=== PATIENT | female | born 1985 | race Caucasian/White ===

== ENCOUNTER 2022-06-01 05:57 | Day surgery (SDC) | payer OTHER, SELFPAY ==
[2022-03-27 13:55] VITALS: BMI 29.9
[2022-05-12 13:01] VITALS: BMI 31.4
[2022-06-01 06:22] VITALS: BP 122/84; PULSE 88; RESP 20; TEMP 37.2; O2SAT 98
--- NOTE | 2022-06-01 07:12 | WPDANESEPPF ---
Anes - Initial Pre Proc Eval Procedure: Operation Date: 06/01/22 07:30 Proposed Procedures p Esophagogastroduodenoscopy - Andrew Howe MD Date/Time: 06/01/22 07:12 Surgeon: Andrew Howe MD Pre Op Diagnosis: Dysphagia Patient Data Age: 37 Gender: F Height: 1.7 m Weight: 92.4 kg Allergies Allergy/AdvReac Type Severity Reaction Status Date / Time metoclopramide Allergy Severe Unknown Verified 06/01/22 06:33 Home Medications Medication Instructions Recorded Confirmed Type albuterol sulfate 90 mcg/actuation 1 inh inhalation Q4H 03/12/22 06/01/22 History aerosol inhaler bupropion HCl 300 mg 24 hr tablet, 300 mg PO QAM 03/12/22 06/01/22 History extended release cholecalciferol (vitamin D3) 25 25 mcg PO DAILY 03/12/22 06/01/22 History mcg (1,000 unit) capsule magnesium malate, chelate 120 mg PO DAILY 03/12/22 06/01/22 History multivitamin 1 tablet PO DAILY 03/12/22 06/01/22 History sertraline 25 mg tablet 25 mg PO DAILY 03/12/22 06/01/22 History medroxyprogesterone 150 mg/mL 150 mg IM [id number] 05/12/22 06/01/22 History intramuscular syringe (Depo-Provera) Patient hx anesthesia problems: none Family hx anesthesia problems: none Results Review: All pre-operative results and documents have been reviewed as part of the pre-operative evaluation. COUNT INCLUDES THE [facility] Past Medical History Medical History GERD (gastroesophageal reflux disease) History of fibromyalgia Hx of chronic arthritis Hx of gastroesophageal reflux (GERD) Hx of irritable bowel syndrome Hx of migraines Hx of seasonal allergies Surgical History Surgical History Hx of appendectomy Hx of arthroscopic knee surgery Family History Family History Father Hypertension Mother Hypertension Social History Social History Smoking packs per day: 1 Smoking cigarettes per day: 20.0 Years smoked: 15 Smoking pack-years: 15.00 Smoking status: Former smoker Tobacco type: cigarettes and e-cigarettes/vaping Additional smoking assessment comments: vapes daily / no cigs since 2019 Alcohol intake: current Alcohol use details: rarely Substance use: current Substance use type: marijuana Other substance usage details: daily Living arrangements: with friend(s) Spiritual care concerns: No Anes - Eval Final PreProcedure Day of Procedure 06/01/22 07:12 Patient weight: obese Heart: regular rate and rhythm Lungs: clear to auscultation Airway: Mallampati scale class II Neurological: alert and oriented Last oral intake: >/= 8 hours ASA classification: III Emergent: no Anesthetic plan: proceed Anesthesia type and monitoring: general GIVS and standard monitoring Results Review: All pre-operative results and documents have been reviewed as part of the pre-operative evaluation. Informed Consent: The patient's anesthetic plan and its attendant risks and benefits were discussed with the patient/family/POA. Questions were solicited and answers provided to the satisfaction of the patient/family/POA.
[2022-06-01] MEDS: LACTATED RINGERS 1,000 ML 150 ML IV CONT (07:21)
--- NOTE | 2022-06-01 07:28 | PM.HPGS ---
History of Present Illness History of Present Illness Consent: Risks, benefits, and alternatives have been discussed and questions answered. Patient agrees to proceed with procedure. Chief complaint: Dysphagia Narrative: Matteo Monge is a 37 year old female here for egd, dysphagia to solids feeling sometimes food not going down as expected and getting stuck in upper chest. Occasionally using tums, never had EGD Review of Systems Constitutional: Constitutional: Denies headache(s) and Denies weakness Eyes: Eyes: Denies blurry vision ENT: Reports Normal hearing present, Denies headache(s) and Denies neck pain Cardiovascular: Cardiovascular: Denies chest pain and Denies dyspnea Respiratory: Respiratory: Denies dyspnea Gastrointestinal: Gastrointestinal: Reports no additional gastrointestinal complaints Genitourinary: Genitourinary: Denies dysuria Musculoskeletal: Musculoskeletal: Denies neck pain Integumentary/Breasts: Skin/Breast: Denies dry skin Neurologic: Reports Normal hearing present, Denies headache(s) and Denies weakness Psychiatric: Psychiatric: Denies anxiety Endocrine: Endocrine: Denies change in body appearance Hematologic/Lymphatic: Hematologic/Lymphatic: Denies easy bleeding Allergic/Immunologic: Allergic/Immunologic: Denies urticaria PMFSH Past Medical History Medical History GERD (gastroesophageal reflux disease) History of fibromyalgia Hx of chronic arthritis Hx of gastroesophageal reflux (GERD) Hx of irritable bowel syndrome Hx of migraines Hx of seasonal allergies Surgical History Surgical History Hx of appendectomy Hx of arthroscopic knee surgery Family History Family History Father Hypertension Mother Hypertension Social History Social History Smoking packs per day: 1 Smoking cigarettes per day: 20.0 Years smoked: 15 Smoking pack-years: 15.00 Smoking status: Former smoker Tobacco type: cigarettes and e-cigarettes/vaping Additional smoking assessment comments: vapes daily / no cigs since 2019 Alcohol intake: current Alcohol use details: rarely Substance use: current Substance use type: marijuana Other substance usage details: daily Living arrangements: with friend(s) Spiritual care concerns: No Meds Home Medications and Allergies Home Medications Medication Instructions Recorded Confirmed Type albuterol sulfate 90 mcg/actuation 1 inh inhalation Q4H 03/12/22 06/01/22 History aerosol inhaler bupropion HCl 300 mg 24 hr tablet, 300 mg PO QAM 03/12/22 06/01/22 History extended release cholecalciferol (vitamin D3) 25 25 mcg PO DAILY 03/12/22 06/01/22 History mcg (1,000 unit) capsule magnesium malate, chelate 120 mg PO DAILY 03/12/22 06/01/22 History multivitamin 1 tablet PO DAILY 03/12/22 06/01/22 History sertraline 25 mg tablet 25 mg PO DAILY 03/12/22 06/01/22 History medroxyprogesterone 150 mg/mL 150 mg IM [id number] 05/12/22 06/01/22 History intramuscular syringe (Depo-Provera) Allergies Allergy/AdvReac Type Severity Reaction Status Date / Time metoclopramide Allergy Severe Unknown Verified 06/01/22 06:33 Vital Signs Vital Signs - 24 hr 06/01/22 06:22 Temperature 98.9 F Pulse Rate 88 Respiratory Rate 20 Blood Pressure 122/84 Pulse Oximetry 98 Oxygen Delivery Room Air Exam Const: General: comfortable and no acute distress HENMT: Face/Nose/Sinus: Normal nares present Eyes: General: appearance normal, both eyes and all related structures Neck: Neck: no JVD Resp: Auscultation: clear to auscultation bilaterally Cardio: Rate: regular rate Rhythm: regular rhythm GI: Inspection: non-distended GI Palp: Yes Soft to palpation Skin: General skin exam: normal color Neuro: G
[2022-06-01 07:40] VITALS: BP 102/67; PULSE 81; RESP 18; O2SAT 97
[2022-06-01 07:50] VITALS: BP 106/66; PULSE 77; RESP 20; O2SAT 98
--- NOTE | 2022-06-01 08:00 | WPDANESPN ---
Anes - Prog Note Post-Op Date/Time: 06/01/22 08:00 Cardiovascular status: normal Respiratory status: normal Airway patency: baseline Mental status: baseline Post-Op hydration status: normal Vital Signs: Last Vital Signs Temp 37.2 C 06/01/22 06:22 Pulse 77 06/01/22 07:50 Resp 20 06/01/22 07:50 BP 106/66 06/01/22 07:50 Pulse Ox 98 06/01/22 07:50 O2 Del Method Room Air 06/01/22 07:50 Pain Score (VAS): 0/10 I/O: Intake & Output 05/31/22 06/01/22 06/01/22 23:59 07:59 15:59 Intake Total 0 Balance 0 Patient Feedback: Patient satisfied with anesthetic care.
[2022-06-01 08:03] VITALS: BP 104/70; PULSE 71; RESP 20; O2SAT 97
== END 2022-06-01 08:37 | disposition home or self-care (01) ==
PROVIDERS: PCP Registered Nurse; Visit Provider Internal Medicine Gastroenterology
PROC: 0DJ08ZZ Inspection of Upper Intestinal Tract, Via Natural or Artificial Opening Endoscopic (ICD-10-PCS; CPT 43235; principal; 2022-06-01 07:30)
DX: K21.9 Gastro-esophageal reflux disease without esophagitis (principal)
CPT/HCPCS: 43239

== ENCOUNTER 2022-06-01 08:00 | Outpatient (NON) | payer OTHER, SELFPAY | END 2022-06-01 08:01 | disposition home or self-care (01) | LOC: ANHLAB 06-03 07:38 | PROVIDERS: PCP Registered Nurse; Visit Provider Internal Medicine Gastroenterology | DX: K31.89 Other diseases of stomach and duodenum (principal) | CPT/HCPCS: 88305 ==

== ENCOUNTER 2022-06-02 14:52 | Emergency (ER) | payer OTHER, SELFPAY ==
[2022-06-02 14:59] VITALS: BP 139/84; PULSE 90; RESP 17; TEMP 37.3; O2SAT 99
--- NOTE | 2022-06-02 20:09 | PC.NURSE ---
pt to triage desk stating that they have been waiting too long. pt tearful. pt states she will just go to in the AM. pt voiced an understanding of risks of leaving before being seen.
== END 2022-06-02 20:09 | disposition left against medical advice (07) ==
PROVIDERS: PCP Registered Nurse
DX: R13.10 Dysphagia, unspecified (principal)
CPT/HCPCS: 99199

== ENCOUNTER 2022-06-18 07:52 | Outpatient (CLI) | payer OTHER, SELFPAY ==
--- NOTE | ~2022-06-18 | NM_ITS ---
EXAM: NM gastric emptying study DATE: 06/18/2022 13:02 SHIPWRIGHT APPRENTICE INDICATION: Nausea TECHNIQUE: A gastric emptying study was performed using the methodology of Annamaria SARAVIA, et al. J Nucl Med 2007; 48:568-572. The patient was given a meal consisting of 2 scrambled eggs labeled with 0.972 mCi Tc-99m sulfur colloid, 2 slices of toast, two packages of jam, and approximately 120 mL of water . Simultaneous anterior and posterior 1-min images of the abdomen were obtained with the patient supi ne at multiple time points over a total period of 4 hours. The geometric mean of anterior and posteri or views was determined, and the percentage retention was calculated for each time point. COMPARISON: None. FINDINGS: Gastric retention of the radiotracer-labeled meal was 42%, 4%, and 1% at the 1-hour, 2-mitali r, and 4-hour time points, respectively. With this technique, apparent rapid gastric emptying is sugg ested by <30% gastric retention at 1 hour. Delayed gastric emptying is defined by gastric retention o f >90% at 1 hour, >60% retention at 2 hours, or >10% retention at 4 hours. IMPRESSION: 1. Normal gastric emptying. Reviewed, dictated and finalized at location A. WRIGHT APPRENTICE IMPRESSION: 1. Normal gastric emptying.
== END 2022-06-18 07:53 | disposition home or self-care (01) ==
LOC: ANHIMG 07:54
PROVIDERS: PCP Registered Nurse; Visit Provider Internal Medicine Gastroenterology
DX: K21.9 Gastro-esophageal reflux disease without esophagitis (principal); K31.89 Other diseases of stomach and duodenum
CPT/HCPCS: 78264; A9541

== ENCOUNTER 2025-03-30 12:29 | Outpatient (CLI) | payer OTHER, SELFPAY ==
--- OUTSIDE RECORDS SUMMARY | 2014-04-26 04:21 | XMS_ITS | Continuity of Care Document ---
Author Organization [facility] Address [address] [place] [address] Phone Care Team Providers Care Tobacco Weigher Name Role Phone Jose Montesinos MD Unavailable Unavailable Allergies, Adverse Reactions, Alerts Substance Reaction Status Criticality METOCLOPRAMIDE HCL Active No Inform ation Medications Medication Instructions Dosage Effective Dates (start - stop) Status Comments Ultram 50 mg tablet take 1 tablet by oral route every 6 hours as needed - Active ALEVE (unknown strength) Not Available - Active Procedures Procedure Date OFFICE/OUTPATIENT VISIT EST OFFICE/OUTPATIENT VISIT NEW Advance Directives Directive Yes / No Effective Date File Name No Information Encounters Encounter Description Practice Location Reason(s) For Visit Diagnoses Date Provider Providers Copied on Encounter [facility], [address], [facility], [place] tel:[phone] [facility] 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 [address] [place] [address], [id number] . 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 [address] [place], [place] [address], [place], [id number] . tel: [phone] OFFICE/OUTPAT IENT VISIT [facility], [address], [place], [address], [place] tel:[phone] [facility] Acquired subluxation of patella 4 Yamel Garcia. [address] [place], [place], [id number] . tel: [phone] Family History Family Member Type Diagnosis Age At Onset No Information Payers Payer name Insurance type Covered democrat ID Authoriza tion(s) No Information Social History Type Description Quantity Date Captured Comments Alcohol Use Details Unknown Caffeine Use Details Unknown Tobacco Use Status Smoking Status No Information Sex Female Chief Complaint And Reason For Visit No Information Reason For Referral Reason For Referral No Information Plan Of Treatment Date Type Action Status Referral Ordered: RADEX KNE COMPL 4/MORE VIEWS RT ordered Referral Ordered: MRI ANY JT LXTR C-MATRL RT Appointment date/timeframe: 04/20/2014 ordered History Of Present Illness Encounter Date Complaint History Of Prese nt Illness Follow Up of MRI RT KNEE Functional Status Date Functional Assessmen t No Information Instructions Date Instruction Additional Infor mation No Information Assessments Type Assessment Date assessment DJD (degenerative joint disease) of knee Patient Care Teams Name Effective Dates (start - stop) Status Members No Information
--- OUTSIDE RECORDS SUMMARY | 2025-03-30 12:36 | XMS_ITS | Encounter Summary ---
Author Organization [facility] Address [facility] [place] [address] Care Team Providers Care Manager Wellness Name Role Phone Allison Garcia Primary Care Provider Encounter Details Date Type Department Care Team (Late st Contact Info) Description 08/26/2021 [employer] Message Enc [facility] Family & Internal Medicine [facility] [address] [place] [address] Allison Garcia APNP [address] [place] [address] Question regarding URINALYSIS WI REFLEX TO CULTURE Social History Tobacco Use Types Packs/Day Years Used Date Smoking Tobacco: Former Cigarettes 1.5 14 1 - 05/02/2019 Smokeless Tobacco: Never Alcohol Use Standard Drinks/Week Comments Yes 0 (1 standard drink = 0.6 oz pur e alcohol) seldomly PHQ-2 Answer Date Recorded PHQ-2 Score - If the patient scores above 3, please move on to questions 3-9 5 02/01/2020 Comments No Sex and Gender Information Value Date Recorded Sex Assigned at Not on file Legal Sex Female 3:46 PM CDT Gender Identity Female 07/21/2021 10:30 AM POACHER OPERATOR Sexual Orientation Bisexual 07/21/2021 10 :30 AM POACHER OPERATOR COVID-19 Exposure Response Date Recorded In the last 10 days, have yo u been in contact with someone who was confirmed or suspected to have Coronavirus/COVID-19? No / Unsure 08/29/2021 9:33 AM POACHER OPERATOR documented as of this encounter Plan of Treatment Not on file documented as of this encounter Visit Diagnoses Not on filedocumented in this encounter Additional Health Concerns Assessment Noted Time PHQ-9 Depression Total Score: 22 020 11:30 AM CDT documented as of this encounter Care Teams Manager Wellness Relationship Specialty Start Date End Date Allison Garcia APNP [address] [place] [address] PCP - General NURSE PRACTITIONER 12/07/19 documented as of this encounter
--- OUTSIDE RECORDS SUMMARY | 2025-03-30 12:36 | XMS_ITS | Encounter Summary ---
Author Organization [employer] Address [address] [place] [address] Care Team Providers Care Sleeping Room Cleaner Name Role Phone Rita, External Provider Primary Care Provider Un available Encounter Details Date Type Department Care Team (Latest Contact Info) Description 11/06/2002 Inpatient Historical HIS [place] [address] [address] MIGRAINE NOS W/O MENTN INTRACTABLE (Primary Dx) Social History Tobacco Use Types Packs/Day Years Used Date Smoking Tobacco: Never Assessed Comments Unknown Sex and Gender Information Value Date Recorded Sex Assigned at Not on file Legal Sex Female 4:23 AM TITLE ABSTRACTOR Gender Identity Not on file Sexual Orientation Not on file documented as of this encounter Plan of Treatment Not on file documented as of this encounter Visit Diagnoses Diagnosis Migraine, unspecified, without mention of intractable migraine without mention of status migrainosus- Primary documented in this encounter Care Teams Sleeping Room Cleaner Relationship Specialty Start Date End Date Rita External Provider PCP - General 04/01/14 documented as of this encounter
--- OUTSIDE RECORDS SUMMARY | 2025-03-30 12:36 | XMS_ITS | Encounter Summary ---
Author Organization [employer] Address [address] [place] [address] Care Team Providers Care Patient Care Associate Name Role Phone Rita External Provider Primary Care Provider Un available Encounter Details Date Type Department Care Team (Late st Contact Info) Description 10/02/2005 Outpatient Historical [facility] Sandip Sultana MD [address] [place] [address] Social History Tobacco Use Types Packs/Day Years Used Date Smoking Tobacco: Never Assessed Comments Unknown Sex and Gender Information Value Date Recorded Sex Assigned at Not on file Legal Sex Female 4:23 AM MANAGEMENT EXPERT Gender Identity Not on file Sexual Orientation Not on file documented as of this encounter Plan of Treatment Not on file documented as of this encounter Visit Diagnoses Not on filedocumented in this encounter Care Teams Patient Care Associate Relationship Specialty Start Date End Date Jaswinder Salinas Provider PCP - General 04/01/14 documented as of this encounter
--- OUTSIDE RECORDS SUMMARY | 2025-03-30 12:36 | XMS_ITS | Encounter Summary ---
Author Organization [facility] Address [facility] [place] [address] Care Team Providers Care Extrusion Process Operator Name Role Phone Allison Garcia Primary Care Provider Encounter Details Date Type Department Care Team (Late st Contact Info) Description 07/16/2021 [employer] Message Enc [facility] Family & Internal Medicine [facility] [address] [place] [address] Allison Garcia APNP [address] [place] [address] Switching from SSRI? Social History Tobacco Use Types Packs/Day Years [...] CDT Gender Identity Female 07/21/2021 10:30 AM PRICING ANALYST Sexual Orientation Bisexual 07/21/2021 10 :30 AM PRICING ANALYST COVID-19 Exposure Response Date Recorded In the last month, have you been in contact with someone who was confirmed or suspected to have Coronavirus / COVID-19? No / Unsure 07/19/2021 11:35 AM PRICING ANALYST documented as of this encounter Plan of Treatment Not on file documented as of this encounter Visit Diagnoses Not on filedocumented in this encounter Additional Health Concerns Assessment Noted Time PHQ-9 Depression Total Score: 22 020 11:30 AM CDT documented as of this encounter Care Teams Extrusion Process Operator Relationship Specialty Start Date End Date Allison Garcia APNP [address] [place] [address] PCP - General NURSE PRACTITIONER 12/07/19 documented as of this encounter
--- OUTSIDE RECORDS SUMMARY | 2025-03-30 12:36 | XMS_ITS | Encounter Summary ---
Author Organization [facility] Address [address] [place] [address] Care Team Providers Care Allocations Clerk Name Role Phone Allison Garcia Primary Care Provider [phone] Encounter Details Date Type Department Care Team (Late st Contact Info) Description 01/06/2021 [employer] Message Enc [facility] Family & Internal Medicine [facility] [address] [place] [address] Allison Garcia APNP [address] [place] [address] Question Social History Tobacco Use Types Packs/Day Years [...] CDT Gender Identity Female 07/21/2021 10:30 AM LARGE ANIMAL VETERINARIAN Sexual Orientation Bisexual 07/21/2021 10 :30 AM LARGE ANIMAL VETERINARIAN COVID-19 Exposure Response Date Recorded In the last month, have you been in contact with someone who was confirmed or suspected to have Coronavirus / COVID-19? No / Unsure 01/06/2021 2:15 PM CDT documented as of this encounter Plan of Treatment Not on file documented as of this encounter Visit Diagnoses Not on filedocumented in this encounter Additional Health Concerns Assessment Noted Time PHQ-9 Depression Total Score: 22 020 11:30 AM CDT documented as of this encounter Care Teams Allocations Clerk Relationship Specialty Start Date End Date Allison Garcia APNP [address] [place] [address] PCP - General NURSE PRACTITIONER 12/07/19 documented as of this encounter
--- OUTSIDE RECORDS SUMMARY | 2025-03-30 12:37 | XMS_ITS | Encounter Summary ---
Author Organization [facility] Address [address] [place] [address] Care Team Providers Care Field Service Poultry Technician Name Role Phone Allison Garcia Primary Care Provider Encounter Details Date Type Department Care Team (Late st Contact Info) Description 01/04/2020 MyChart Message Enc [facility] Medical Group Family & Internal Medicine [facility] [address] [place] [address] Allison Garcia APNP [address] [place] [address] RE: Medication Questions Social History Tobacco Use Types Packs/Day Years Used Date Smoking Tobacco: Former Cigarettes 1.5 14 1 - 05/02/2019 Smokeless Tobacco: Never Alcohol Use Standard Drinks/Week Comments Yes 0 (1 standard drink = 0.6 oz pur e alcohol) seldomly PHQ-2 Answer Date Recorded PHQ-2 Score 4 12/07/2019 Comments Unknown Sex and Gender Information Value Date Recorded Sex Assigned at Not on file Legal Sex Female 3:46 PM CDT Gender Identity Female 07/21/2021 10:30 AM PSYCHOLOGIST RESEARCH ASSISTANT Sexual Orientation Bisexual 07/21/2021 10 :30 AM PSYCHOLOGIST RESEARCH ASSISTANT COVID-19 Exposure Response Date Recorded In the last month, have you been in contact with someone who was confirmed or suspected to have Coronavirus / COVID-19? No / Unsure 12/07/2019 9:22 AM CDT documented as of this encounter Plan of Treatment Not on file documented as of this encounter Visit Diagnoses Not on filedocumented in this encounter Additional Health Concerns Assessment Noted Time PHQ-9 Depression Total Score: 19 020 10:50 AM CDT documented as of this encounter Care Teams Field Service Poultry Technician Relationship Specialty Start Date End Date Allison Garcia APNP [address] [place] [address] PCP - General NURSE PRACTITIONER 12/07/19 documented as of this encounter
--- OUTSIDE RECORDS SUMMARY | 2025-03-30 12:37 | XMS_ITS | Clinical Summary ---
Author Organization [facility] Address [address] [place] [address] Care Team Providers Care Cage Unloader Name Role Phone Rita, External Provider Primary Care Provider Un available Allergies Active Allergy Reactions Criticality Noted Date Comments Metoclopramide Hcl Other (See Comments) 014 Dystonic reaction Medications No known medications Social History Tobacco Use Types Packs/Day Years Used Date Smoking Tobacco: Every Day Cigarettes Alcohol Use Standard Drinks/Week Comments Yes 0 (1 standard drink = 0.6 oz pur e alcohol) Comments Unknown Sex and Gender Information Value Date Recorded Sex Assigned at Not on file Legal Sex Female 4:23 AM COURTESY BOOTH CASHIER Gender Identity Not on file Sexual Orientation Not on file Last Filed Vital Signs Vital Sign Reading Time Taken Comments Blood Pressure 121/72 04/01/2014 9:56 PM CDT Pulse - - Temperature 36.8 C (98.3 F) 04/01/2014 8:21 PM CDT Respiratory Rate 14 04/01/2014 9:56 PM CDT Oxygen Saturation 100% 04/01/2014 9:56 PM CDT Inhaled Oxygen Concentration - - Weight 70.3 kg (155 lb) 04/01/2014 8:21 PM CDT Height 170.2 cm (5' 7) 04/01/2014 8:21 PM CDT Body Mass Index 24.28 04/01/2014 8:21 PM CDT Plan of Treatment Health Maintenance Due Date Last Done Comments DTAP/TDAP/TD VACCINES (1 - Tdap) 2005 HEPATITIS B VACCINES (1 of 3 - 19+ 3-dose series) 04/12 HPV/Cotest (21-29) 2007 HPV VACCINES (1 - 3-dose SCDM series) 2013 CERVICAL CANCER SCREENING 2016 HPV/Cotest (30-65) 2016 PAP SMEAR 2016 INFLUENZA VACCINE (#1) 2025 Insurance [facility] [employer] Care Teams Cage Unloader Relationship Specialty Start Date End Date Rita, External Provider PCP - General 04/01/14
--- OUTSIDE RECORDS SUMMARY | 2025-03-30 12:37 | XMS_ITS | Encounter Summary ---
Author Organization [employer] Address [address] [place] [address] Care Team Providers Care Artisan Plasterer Name Role Phone Rita External Provider Primary Care Provider Un available Encounter Details Date Type Department Care Team (Late st Contact Info) Description 09/25/2005 Outpatient Historical [facility], [address] Sandip Sanchez MD [address] [facility] [place] [address] Onychia and Paronychia of Finger (Primary Dx) Social History Tobacco Use Types Packs/Day Years Used Date Smoking Tobacco: Never Assessed Comments Unknown Sex and Gender Information Value Date Recorded Sex Assigned at Not on file Legal Sex Female 4:23 AM PUBLICATION DESIGNER Gender Identity Not on file Sexual Orientation Not on file documented as of this encounter Plan of Treatment Not on file documented as of this encounter Visit Diagnoses Diagnosis Onychia and paronychia of finger- Primary documented in this encounter Care Teams Artisan Plasterer Relationship Specialty Start Date End Date Jaswinder Salinas Provider PCP - General 04/01/14 documented as of this encounter
--- OUTSIDE RECORDS SUMMARY | 2025-03-30 12:37 | XMS_ITS | Encounter Summary ---
Author Organization [facility] Address [address] [place] [address] Care Team Providers Care Detacker Name Role Phone Allison Garcia Primary Care Provider Encounter Details Date Type Department Care Team (Late st Contact Info) Description 12/20/2020 Rexlyt Message Enc [facility] Family & Internal Medicine [facility] [address] [place] [address] Allison Garcia APNP [address] [place] [address] Follow Up/Update Social History Tobacco Use Types Packs/Day Years [...] CDT Gender Identity Female 07/21/2021 10:30 AM PHOTOENGRAVING FINISHER Sexual Orientation Bisexual 07/21/2021 10 :30 AM PHOTOENGRAVING FINISHER documented as of this encounter Plan of Treatment Not on file documented as of this encounter Visit Diagnoses Not on filedocumented in this encounter Additional Health Concerns Assessment Noted Time PHQ-9 Depression Total Score: 22 020 11:30 AM CDT documented as of this encounter Care Teams Detacker Relationship Specialty Start Date End Date Allison Garcia APNP [address] [place] [address] PCP - General NURSE PRACTITIONER 12/07/19 documented as of this encounter
--- OUTSIDE RECORDS SUMMARY | 2025-03-30 12:37 | XMS_ITS | Encounter Summary ---
Author Organization [facility] Address [facility] [place] [address] Care Team Providers Care Cocoa Bean Cleaner Name Role Phone Allison Garcia Primary Care Provider Encounter Details Date Type Department Care Team (Late st Contact Info) Description 12/18/2020 Photonic Materialshart Message Enc [facility] Family & Internal Medicine [facility] [address] [place] [address] Allison Garcia APNP [address] [place] [address] Medication Questions Social History Tobacco Use Types [...] CDT Gender Identity Female 07/21/2021 10:30 AM BOUNTY HUNTER Sexual Orientation Bisexual 07/21/2021 10 :30 AM BOUNTY HUNTER documented as of this encounter Plan of Treatment Not on file documented as of this encounter Visit Diagnoses Not on filedocumented in this encounter Additional Health Concerns Assessment Noted Time PHQ-9 Depression Total Score: 22 020 11:30 AM CDT documented as of this encounter Care Teams Cocoa Bean Cleaner Relationship Specialty Start Date End Date Allison Garcia APNP [address] [place] [address] PCP - General NURSE PRACTITIONER 12/07/19 documented as of this encounter
--- OUTSIDE RECORDS SUMMARY | 2025-03-30 12:37 | XMS_ITS | Encounter Summary ---
Author Organization [facility] Address [address] [place] [address] Care Team Providers Care Workforce Development Assistant Name Role Phone Allison Garcia ISAURO Primary Care Provider Encounter Details Date Type Department Care Team (Late st Contact Info) Description 03/02/2020 MyChart Message Enc [facility] Multispecialty Care - [facility] [address] [place] [address] Jamie Cordova MD [address] [place] [address] RE: Question Social History Tobacco Use Types Packs/Day [...] CDT Gender Identity Female 07/21/2021 10:30 AM NEW CAR INSPECTOR Sexual Orientation Bisexual 07/21/2021 10 :30 AM NEW CAR INSPECTOR COVID-19 Exposure Response Date Recorded In the last month, have you been in contact with someone who was confirmed or suspected to have Coronavirus / COVID-19? No / Unsure 02/12/2020 8:27 AM CDT documented as of this encounter Plan of Treatment Not on file documented as of this encounter Visit Diagnoses Not on filedocumented in this encounter Additional Health Concerns Assessment Noted Time PHQ-9 Depression Total Score: 22 020 11:30 AM CDT documented as of this encounter Care Teams Workforce Development Assistant Relationship Specialty Start Date End Date Allison Garcia APNP [address] [place] [address] PCP - General NURSE PRACTITIONER 12/07/19 documented as of this encounter
--- OUTSIDE RECORDS SUMMARY | 2025-03-30 12:37 | XMS_ITS | Encounter Summary ---
Author Organization [facility] Address [facility] [place] [address] Care Team Providers Care Rubber Chemist Name Role Phone Allison Garcia Primary Care Provider Encounter Details Date Type Department Care Team (Late st Contact Info) Description 02/15/[address] [facility] Family & Internal Medicine [facility] [address] [place] [address] Allison Garcia APNP [address] [place] [address] RE: Follow Up/Update Social History Tobacco Use Types [...] CDT Gender Identity Female 07/21/2021 10:30 AM TACTICAL DEBRIEFER Sexual Orientation Bisexual 07/21/2021 10 :30 AM TACTICAL DEBRIEFER COVID-19 Exposure Response Date Recorded In the [...] documented as of this encounter Care Teams Rubber Chemist Relationship Specialty Start Date End Date Allison Garcia APNP [address] [place] [address] PCP - General NURSE PRACTITIONER 12/07/19 documented as of this encounter
--- OUTSIDE RECORDS SUMMARY | 2025-03-30 12:37 | XMS_ITS | Encounter Summary ---
Author Organization [facility] Address [facility] [place] [address] Care Team Providers Care News Editor Name Role Phone Allison Garcia Primary Care Provider Encounter Details Date Type Department Care Team (Late st Contact Info) Description 02/25/2022 MyChart Message Enc [facility] Family & Internal Medicine [facility] [address] [place] [address] Allison Garcia APNP [address] [place] [address] Post-covid fatigue Social History Tobacco Use Types Packs/Day Years [...] CDT Gender Identity Female 07/21/2021 10:30 AM REGIONAL ADMINISTRATIVE ASSISTANT Sexual Orientation Bisexual 07/21/2021 10 :30 AM REGIONAL ADMINISTRATIVE ASSISTANT COVID-19 Exposure Response Date Recorded In the last 10 days, have yo u been in contact with someone who was confirmed or suspected to have Coronavirus/COVID-19? No / Unsure 02/20/2022 6:58 AM CDT documented as of this encounter Plan of Treatment Not on file documented as of this encounter Visit Diagnoses Not on filedocumented in this encounter Additional Health Concerns Assessment Noted Time PHQ-9 Depression Total Score: 22 020 11:30 AM CDT documented as of this encounter Care Teams News Editor Relationship Specialty Start Date End Date Allison Garcia APNP [address] [place] [address] PCP - General NURSE PRACTITIONER 12/07/19 documented as of this encounter
--- OUTSIDE RECORDS SUMMARY | 2025-03-30 12:37 | XMS_ITS | Encounter Summary ---
Author Organization [facility] Address [address] [place] [address] Care Team Providers Care Yarn Sorter Name Role Phone Allison Garcia Primary Care Provider [phone] Encounter Details Date Type Department Care Team (Late st Contact Info) Description 02/04/2020 MyChart Message Enc [facility] Family & Internal Medicine [facility] [address] [place] [address] Allison Garcia APNP [address] [place] [address] RE: Medication Questions Social History [...] CDT Gender Identity Female 07/21/2021 10:30 AM PSYCHIATRIC CLINICIAN Sexual Orientation Bisexual 07/21/2021 10 :30 AM PSYCHIATRIC CLINICIAN COVID-19 Exposure Response Date Recorded In the last month, have you been in contact with someone who was confirmed or suspected to have Coronavirus / COVID-19? No / Unsure 02/01/2020 11:03 AM CDT documented as of this encounter Plan of Treatment Not on file documented as of this encounter Visit Diagnoses Not on filedocumented in this encounter Additional Health Concerns Assessment Noted Time PHQ-9 Depression Total Score: 22 020 11:30 AM CDT documented as of this encounter Care Teams Yarn Sorter Relationship Specialty Start Date End Date Allison Garcia APNP [address] [place] [address] PCP - General NURSE PRACTITIONER 12/07/19 documented as of this encounter
--- OUTSIDE RECORDS SUMMARY | 2025-03-30 12:37 | XMS_ITS | Encounter Summary ---
Author Organization [employer] Address [address] [place] [address] Care Team Providers Care Ballpoint Pen Cartridge Tester Name Role Phone Rita External Provider Primary Care Provider Un available Encounter Details Date Type Department Care Team (Late st Contact Info) Description 09/23/2005 Outpatient Historical [facility] Sandip Sultana MD [address] [place] [address] Social History Tobacco Use Types Packs/Day Years Used Date Smoking Tobacco: Never Assessed Comments Unknown Sex and Gender Information Value Date Recorded Sex Assigned at Not on file Legal Sex Female 4:23 AM LITIGATION SERVICES MANAGER Gender Identity Not on file Sexual Orientation Not on file documented as of this encounter Plan of Treatment Not on file documented as of this encounter Visit Diagnoses Not on filedocumented in this encounter Care Teams Ballpoint Pen Cartridge Tester Relationship Specialty Start Date End Date Jaswinder Salinas Provider PCP - General 04/01/14 documented as of this encounter
--- OUTSIDE RECORDS SUMMARY | 2025-03-30 12:37 | XMS_ITS | Encounter Summary ---
Author Organization [employer] Address [address] [place] [address] Care Team Providers Care 4Th Grade Teacher Name Role Phone Rita External Provider Primary Care Provider Un available Encounter Details Date Type Department Care Team (Late st Contact Info) Description 03/06/2000 Emergency [facility] Jose Moore MD NO ADDRESS ON FILE Er, Authorized P NO ADDRESS ON FILE Migraine, unspecified, without mention of intractable migraine without mention of status migrainosus (Primary Dx) Social History Tobacco Use Types Packs/Day Years Used Date Smoking Tobacco: Never Assessed Comments Unknown Sex and Gender Information Value Date Recorded Sex Assigned at Not on file Legal Sex Female 4:23 AM INSIDE SALES LEAD Gender Identity Not on file Sexual Orientation Not on file documented as of this encounter Plan of Treatment Not on file documented as of this encounter Visit Diagnoses Diagnosis Migraine, unspecified, without mention of intractable migraine without mention of status migrainosus- Primary documented in this encounter Care Teams 4Th Grade Teacher Relationship Specialty Start Date End Date Rita External Provider PCP - General 04/01/14 documented as of this encounter
--- OUTSIDE RECORDS SUMMARY | 2025-03-30 12:37 | XMS_ITS | Encounter Summary ---
Author Organization [employer] Address [address] [place] [address] Care Team Providers Care Cancer Registry Manager Name Role Phone Rita External Provider Primary Care Provider Un available Encounter Details Date Type Department Care Team (Late st Contact Info) Description 09/30/2005 Outpatient Historical [facility] Sandip Sultana MD [address] [place] [address] Social History Tobacco Use Types Packs/Day Years Used Date Smoking Tobacco: Never Assessed Comments Unknown Sex and Gender Information Value Date Recorded Sex Assigned at Not on file Legal Sex Female 4:23 AM UNHAIRER Gender Identity Not on file Sexual Orientation Not on file documented as of this encounter Plan of Treatment Not on file documented as of this encounter Visit Diagnoses Not on filedocumented in this encounter Care Teams Cancer Registry Manager Relationship Specialty Start Date End Date Jaswinder Salinas Provider PCP - General 04/01/14 documented as of this encounter
--- OUTSIDE RECORDS SUMMARY | 2025-03-30 12:37 | XMS_ITS | Encounter Summary ---
Author Organization [facility] Address [facility] [place] [address] Care Team Providers Care Sensor Technician Name Role Phone Allison Garcia Primary Care Provider Encounter Details Date Type Department Care Team (Late st Contact Info) Description 06/02/2022 MyChart Message Enc [facility] Family & Internal Medicine [facility] [address] [place] [address] Allison Garcia APNP [address] [place] [address] Upper GI endo yesterday Social History Tobacco Use Types Packs/Day Years [...] CDT Gender Identity Female 07/21/2021 10:30 AM BREAKFAST HOSTESS Sexual Orientation Bisexual 07/21/2021 10 :30 AM BREAKFAST HOSTESS documented as of this encounter Plan of Treatment Not on file documented as of this encounter Visit Diagnoses Not on filedocumented in this encounter Additional Health Concerns Assessment Noted Time PHQ-9 Depression Total Score: 22 020 11:30 AM CDT documented as of this encounter Care Teams Sensor Technician Relationship Specialty Start Date End Date Allison Garcia APNP [address] [place] [address] PCP - General NURSE PRACTITIONER 12/07/19 documented as of this encounter
--- OUTSIDE RECORDS SUMMARY | 2025-03-30 12:37 | XMS_ITS | Encounter Summary ---
Author Organization [employer] Address [address] [place] [address] Care Team Providers Care Engineer Second Assistant Name Role Phone Rita External Provider Primary Care Provider Un available Encounter Details Date Type Department Care Team (Latest Contact Info) Description 12/27/2000 Outpatient Historical [facility] Montesinos, Jose Escobar MD [address] [place] [address] Follow-up examination, following other surgery (Primary Dx) Social History Tobacco Use Types Packs/Day Years Used Date Smoking Tobacco: Never Assessed Comments Unknown Sex and Gender Information Value Date Recorded Sex Assigned at Not on file Legal Sex Female 4:23 AM YOUTH DIRECTOR Gender Identity Not on file Sexual Orientation Not on file documented as of this encounter Plan of Treatment Not on file documented as of this encounter Visit Diagnoses Diagnosis Follow-up examination, following other surgery- Primary documented in this encounter Care Teams Engineer Second Assistant Relationship Specialty Start Date End Date Jaswinder Salinas Provider PCP - General 04/01/14 documented as of this encounter
--- OUTSIDE RECORDS SUMMARY | 2025-03-30 12:37 | XMS_ITS | Encounter Summary ---
Author Organization [facility] Address [address] [place] [address] Care Team Providers Care Senior Administrative Support Name Role Phone Allison Garcia Primary Care Provider Encounter Details Date Type Department Care Team (Late st Contact Info) Description 04/05/2020 MyCSoricimedt Message Enc [facility] Family & Internal Medicine [facility] [address] [place] [address] Allison Garcia APNP [address] [place] [address] RE: Question Social History Tobacco Use Types [...] CDT Gender Identity Female 07/21/2021 10:30 AM ORDER PACKER OR PACKAGER Sexual Orientation Bisexual 07/21/2021 10 :30 AM ORDER PACKER OR PACKAGER documented as of this encounter Plan of Treatment Not on file documented as of this encounter Visit Diagnoses Not on filedocumented in this encounter Additional Health Concerns Assessment Noted Time PHQ-9 Depression Total Score: 22 020 11:30 AM CDT documented as of this encounter Care Teams Senior Administrative Support Relationship Specialty Start Date End Date Allison Garcia APNP [address] [place] [address] PCP - General NURSE PRACTITIONER 12/07/19 documented as of this encounter
--- OUTSIDE RECORDS SUMMARY | 2025-03-30 12:37 | XMS_ITS | Encounter Summary ---
Author Organization [facility] Address [address] [place] [address] Care Team Providers Care Contour Sander Name Role Phone Allison Garcia Primary Care Provider Encounter Details Date Type Department Care Team (Late st Contact Info) Description 09/01/2021 [place] Message Enc [facility] Family & Internal Medicine [facility] [address] [place] [address] Allison Garcia APNP [address] [place] [address] Response to letter Social History Tobacco Use Types Packs/Day Years [...] CDT Gender Identity Female 07/21/2021 10:30 AM PLANNER Sexual Orientation Bisexual 07/21/2021 10 :30 AM PLANNER COVID-19 Exposure Response Date Recorded In the last 10 days, have yo u been in contact with someone who was confirmed or suspected to have Coronavirus/COVID-19? No / Unsure 08/29/2021 9:33 AM PLANNER documented as of this encounter Plan of Treatment Not on file documented as of this encounter Visit Diagnoses Not on filedocumented in this encounter Additional Health Concerns Assessment Noted Time PHQ-9 Depression Total Score: 22 020 11:30 AM CDT documented as of this encounter Care Teams Contour Sander Relationship Specialty Start Date End Date Allison Garcia APNP [address] [place] [id number] PCP - General NURSE PRACTITIONER 12/07/19 documented as of this encounter
--- OUTSIDE RECORDS SUMMARY | 2025-03-30 12:37 | XMS_ITS | Clinical Summary ---
Author Organization [facility] Address [address] [place] [address] Care Team Providers Care Ice Cutter Name Role Phone Allison Garcia APRN-TRAINING ASSOCIATE Primary Care Provider Source Comments [facility],non-owned Affiliates and Associated Physician Practices is amultiple site organization consisting of ambulatory clinics and hospital sitesin [place], [place], [place] and [place]. This disclosure is being madepursuant to the Care Everywhere program and may not contain all information available regarding this patient. Last updated 18.[facility] [employer] Allergies Active Allergy Reactions Criticality Noted Date Comments Metoclopramide Other High 04/03/2013 Patient experienced un natural muscle movements In neck. Stiffness in muscles Dystonic reaction Patient experienced un natural muscle movements In neck. Stiffness in muscles Dystonic reaction Medications * Be aware that medications may not be up to date on this document. Alwaysverify current medications with the patient. levonorgestrel (MIRENA, 52 MG,) 20 MCG/24HR IUD 1 device by Intrauterine route as directed Active sertraline (ZOLOFT) 25 MG tablet 0 Active Cholecalcifero l (VITAMIN D3) 25 MCG (1000 UT) Take 25 capsules by mouth once daily Active Cannabinoids (THC FREE) 20 MG/ML LIQD Take by mouth as needed DOSAGE VARIES DUE TO HOW BAD THE PAIN IS Active eletriptan (RELPAX) 40 MG tabletIndicati ons:Chronic migraine Take 1 tab by mouth once at first sign of migraine. May repeat one time after 2 hours if needed. Max of 2 in 24 hours 6 tablet 5 1 Active erenumab-aooe (AIMOVIG) 140 MG/ML auto injector penIndications :Chronic migraine Inject 1 mL subcutaneously every 30 days 1 Pen 5 1 Active Esomeprazole Magnesium (NEXIUM PO) Active Active Problems Problem Noted Date Diagnosed Date Patellofemoral pain syndrome of left knee 2019 Localized osteoarthritis of knee 01/29/2020 Endometriosis 12/07/2019 Fibromyalgia 12/07/2019 Depressive disorder, not elsewhere classified Migraine 04/03/2013 Immunizations Immunization Administration Dates Next Due INFLUENZA VACCINE, TRIV. (AF LURIA, FLUZONE TRIVALENT; 6MO+) (IIV3) 04/03/2013 INFLUENZA VACCINE, QUADR. (F LUZONE; FLULAVAL; FLUARIX; AFLURIA QUADRIVALENT; 6MO+), 0.5 ML (IIV4) 05/26/2019 Family History Medical History Relation Name Comments Hypertension Father Cancer Maternal Grandfather liver Cancer Maternal Grandmother breast Migraine Maternal Grandmother Migraine Mother Cancer Paternal Grandfather colon Cancer Paternal Grandmother liver Asthma Sister 1 Migraine Sister 2 Relation Name Status Comments Father Alive Maternal Grandfather Maternal Grandmother Mother Alive Paternal Grandfather Paternal Grandmother Sister 1 Sister 2 Social History Tobacco Use Types Packs/Day Years Used Date Smoking Tobacco: Every Day Cigarettes Smokeless Tobacco: Never Alcohol Use Standard Drinks/Week Comments No 0 (1 standard drink = 0.6 oz pur e alcohol) Comments No Sex and Gender Information Value Date Recorded Sex Assigned at Not on file Legal Sex Female 4:11 PM CDT Gender Identity Not on file Sexual Orientation Not on file 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 Not on file Not on file Not on file Last Filed Vital Signs Vital Sign Reading Time Taken Comments Blood Pressure 113/82 05/06/2020 10:45 AM CDT Pulse 73 05/06/2020 10:45 AM CDT Temperature 36.6 C (97.8 F) 04/22/2020 7:49 AM CDT Respiratory Rate 18 05/26/2019 2:17 PM BATTERY CONTAINER TESTER Oxygen Saturation 98% 04/22/2020 7:49 AM CDT Inhaled Oxygen Concentration - - Weight 81.2 kg (179 lb) 05/06/2020 10:45 AM CDT Height 170.2 cm (5' 7) 05/06/2020 10:45 AM CDT Body Mass Index 28.04 05/06/2020 10:45 AM CDT Plan of Treatment Health Maintenance Due Date Last Done Comments HIV SCREENING 2001 HEPATITIS C SCREENING 04/25/2004 DTAP/TDAP/TD VACCINES (1 - Tdap) 2005 HEPATITIS B VACCINE (1 of 3 - 19+ 3-dose series) 2005 PNEUMOCOCCAL VACCINE (1 of 2 - PCV) 2005 PAP SMEAR 01/01/2011 01/02/2008 (Prev iously completed) HPV VACCINE (1 - 3-dose SCDM series) 2013 DEPRESSION SCREENING 07/12/2024 COVID-19 VACCINE (1 - season) 2025 INFLUENZA VACCINE (#1) 2025 9, 09/27/2018, 05/02/2017, Additional history exists ZOSTER VACCINE (1 of 2) 2036 HIB VACCINE Aged Out No longer eligi ble based on patient's age to complete this topic MENINGOCOCCAL (Group B) VACCINE SHARED DECISION-MAKING Aged Out No longer eligible based on patient's age to complete this topic MENINGOCOCCAL GROUPS A/C/Y/W VACCINE Aged Out No longer eligible based on patient's age to complete this topic Insurance [facility] [place] [id number] [facility] Care Teams Ice Cutter Relationship Specialty Start Date End Date Allison Garcia, SEWER MAINTENANCE SUPERVISOR-TRAINING ASSOCIATE [address] [place] [address] PCP - General 02/14/20
--- OUTSIDE RECORDS SUMMARY | 2025-03-30 12:37 | XMS_ITS | Encounter Summary ---
Author Organization [employer] Address [address] [place] [address] Care Team Providers Care Hospice Bereavement Coordinator Name Role Phone Rita External Provider Primary Care Provider Un available Encounter Details Date Type Department Care Team (Late st Contact Info) Description 10/13/2000 Outpatient Historical [place] [address] [place] [address] Pain in joint, lower leg (Primary Dx) Social History Tobacco Use Types Packs/Day Years Used Date Smoking Tobacco: Never Assessed Comments Unknown Sex and Gender Information Value Date Recorded Sex Assigned at Not on file Legal Sex Female 4:23 AM SIGN HANGER SUPERVISOR Gender Identity Not on file Sexual Orientation Not on file documented as of this encounter Plan of Treatment Not on file documented as of this encounter Visit Diagnoses Diagnosis Pain in joint, lower leg- Primary documented in this encounter Care Teams Hospice Bereavement Coordinator Relationship Specialty Start Date End Date Jaswinder Salinas Provider PCP - General 04/01/14 documented as of this encounter
--- OUTSIDE RECORDS SUMMARY | 2025-03-30 12:37 | XMS_ITS | Encounter Summary ---
Author Organization [facility] Address [facility] [place] [address] Care Team Providers Care Role Player Name Role Phone Allison Garcia Primary Care Provider Encounter Details Date Type Department Care Team (Late st Contact Info) Description 02/23/2022 Biomodat Message Enc [facility] Medical Group Family & Internal Medicine [facility] [address] [place] [address] Allison Garcia APNP [address] [place] [address] On the mend! Social History Tobacco Use Types Packs/Day Years [...] CDT Gender Identity Female 07/21/2021 10:30 AM MANAGER TAX Sexual Orientation Bisexual 07/21/2021 10 :30 AM MANAGER TAX COVID-19 Exposure Response Date Recorded In the [...] documented as of this encounter Care Teams Role Player Relationship Specialty Start Date End Date Allison Garcia APNP [address] [place] [address] PCP - General NURSE PRACTITIONER 12/07/19 documented as of this encounter
--- OUTSIDE RECORDS SUMMARY | 2025-03-30 12:37 | XMS_ITS | Encounter Summary ---
Author Organization [facility] Address [address] [place] [address] Care Team Providers Care Banquet Food Server Name Role Phone Allison Garcia Primary Care Provider Encounter Details Date Type Department Care Team (Late st Contact Info) Description 12/07/2019 MyChart Message Enc [facility] Medical Group Family & Internal Medicine [facility] [address] [place] [address] Allison Garcia APNP [address] [place] [address] RE: Other Social History Tobacco Use Types Packs/Day Years [...] CDT Gender Identity Female 07/21/2021 10:30 AM MACHINE OPERATOR PICKER Sexual Orientation Bisexual 07/21/2021 10 :30 AM MACHINE OPERATOR PICKER COVID-19 Exposure Response Date Recorded In the [...] documented as of this encounter Care Teams Banquet Food Server Relationship Specialty Start Date End Date Allison Garcia APNP [address] [place] [address] PCP - General NURSE PRACTITIONER 12/07/19 documented as of this encounter
--- OUTSIDE RECORDS SUMMARY | 2025-03-30 12:37 | XMS_ITS | Encounter Summary ---
Author Organization [facility] Address [address] [place] [address] Care Team Providers Care Raw Stock Drier Tender Name Role Phone Allison Garcia Primary Care Provider [phone] Encounter Details Date Type Department Care Team (Late st Contact Info) Description 12/17/[address] [facility] Medical Group Family & Internal Medicine [facility] [address] [place] [address] Allison Garcia APNP [address] [place] [address] Medication Questions Social History Tobacco [...] CDT Gender Identity Female 07/21/2021 10:30 AM MARKET RELATIONSHIP MANAGER Sexual Orientation Bisexual 07/21/2021 10 :30 AM MARKET RELATIONSHIP MANAGER documented as of this encounter Plan of Treatment Not on file documented as of this encounter Visit Diagnoses Not on filedocumented in this encounter Additional Health Concerns Assessment Noted Time PHQ-9 Depression Total Score: 22 020 11:30 AM CDT documented as of this encounter Care Teams Raw Stock Drier Tender Relationship Specialty Start Date End Date Allison Garcia APNP [address] [place] [address] PCP - General NURSE PRACTITIONER 12/07/19 documented as of this encounter
--- OUTSIDE RECORDS SUMMARY | 2025-03-30 12:37 | XMS_ITS | Encounter Summary ---
Author Organization [facility] Address [facility] [place] [address] Care Team Providers Care Egg Setter Name Role Phone Allison Garcia Primary Care Provider Encounter Details Date Type Department Care Team (Late st Contact Info) Description 02/18/2022 MyChart Message Enc [facility] Medical Group Family & Internal Medicine [facility] [address] [place] [address] Allison Garcia APNP [address] [place] [address] Covid alleviation Social History Tobacco Use Types Packs/Day Years [...] CDT Gender Identity Female 07/21/2021 10:30 AM TREE LOADER MEAT Sexual Orientation Bisexual 07/21/2021 10 :30 AM TREE LOADER MEAT COVID-19 Exposure Response Date Recorded In the [...] documented as of this encounter Care Teams Egg Setter Relationship Specialty Start Date End Date Allison Garcia APNP [address] [place] [address] PCP - General NURSE PRACTITIONER 12/07/19 documented as of this encounter
--- OUTSIDE RECORDS SUMMARY | 2025-03-30 12:37 | XMS_ITS | Encounter Summary ---
Author Organization [facility] Address [address] [place] [address] Care Team Providers Care Liquid Flavor Compounder Name Role Phone Allison Garcia Primary Care Provider [phone] Encounter Details Date Type Department Care Team (Late st Contact Info) Description 02/12/2020 MyChart Message Enc [facility] Medical Group Family & Internal Medicine [facility] [address] [place] [address] Allison Garcia APNP [address] [place] [address] Test Results Social History Tobacco Use Types Packs/Day Years [...] CDT Gender Identity Female 07/21/2021 10:30 AM POWER ELECTRONICS ENGINEER Sexual Orientation Bisexual 07/21/2021 10 :30 AM POWER ELECTRONICS ENGINEER COVID-19 Exposure Response Date Recorded In the [...] documented as of this encounter Care Teams Liquid Flavor Compounder Relationship Specialty Start Date End Date Allison Garcia APNP [address] [place] [address] PCP - General NURSE PRACTITIONER 12/07/19 documented as of this encounter
--- OUTSIDE RECORDS SUMMARY | 2025-03-30 12:37 | XMS_ITS | Encounter Summary ---
Author Organization [employer] Address [address] [place] [address] Care Team Providers Care Fretted Instrument Repairer Name Role Phone Rita External Provider Primary Care Provider Un available Encounter Details Date Type Department Care Team (Latest Contact Info) Description 08/29/2001 Outpatient Historical HIS [place] [address] [address] MIGRAINE NEC W/O MENTN INTRACTABLE (Primary Dx) Social History Tobacco Use Types Packs/Day Years Used Date Smoking Tobacco: Never Assessed Comments Unknown Sex and Gender Information Value Date Recorded Sex Assigned at Not on file Legal Sex Female 4:23 AM DIRECTOR OF OUTREACH Gender Identity Not on file Sexual Orientation Not on file documented as of this encounter Plan of Treatment Not on file documented as of this encounter Visit Diagnoses Diagnosis Other forms of migraine, without mention of intractable migraine without mention of status migrainosus- Primary documented in this encounter Care Teams Fretted Instrument Repairer Relationship Specialty Start Date End Date Rita External Provider PCP - General 04/01/14 documented as of this encounter
--- OUTSIDE RECORDS SUMMARY | 2025-03-30 12:37 | XMS_ITS | Encounter Summary ---
Author Organization [employer] Address [address] [place] [address] Care Team Providers Care Dramatic Arts Historian Name Role Phone Rita External Provider Primary Care Provider Un available Encounter Details Date Type Department Care Team (Latest Contact Info) Description 05/12/2000 Inpatient Historical HIS [place] [address] [address] Headache(784.0) (Primary Dx) Social History Tobacco Use Types Packs/Day Years Used Date Smoking Tobacco: Never Assessed Comments Unknown Sex and Gender Information Value Date Recorded Sex Assigned at Not on file Legal Sex Female 4:23 AM MARKETING CONTENT COORDINATOR Gender Identity Not on file Sexual Orientation Not on file documented as of this encounter Plan of Treatment Not on file documented as of this encounter Visit Diagnoses Diagnosis Headache(784.0)- Primary Headache documented in this encounter Care Teams Dramatic Arts Historian Relationship Specialty Start Date End Date Rita External Provider PCP - General 04/01/14 documented as of this encounter
--- OUTSIDE RECORDS SUMMARY | 2025-03-30 12:37 | XMS_ITS | Encounter Summary ---
Author Organization [facility] Address [address] [place] [address] Care Team Providers Care Postulant Name Role Phone Allison Garcia Primary Care Provider Encounter Details Date Type Department Care Team (Late st Contact Info) Description 11/11/2021 MyChart Message Enc [facility] Medical Group Family & Internal Medicine [facility] [address] [place] [address] Allison Garcia APNP [address] [place] [address] Note for work Social History Tobacco Use Types Packs/Day Years [...] CDT Gender Identity Female 07/21/2021 10:30 AM LAND APPRAISER Sexual Orientation Bisexual 07/21/2021 10 :30 AM LAND APPRAISER documented as of this encounter Progress Notes * Nell Hollis MA - 11/12/2021 2:32 PM CDT Note made. BB 11/12/2021 documented in this encounter Plan of Treatment Not on file documented as of this encounter Visit Diagnoses Not on filedocumented in this encounter Additional Health Concerns Assessment Noted Time PHQ-9 Depression Total Score: 22 020 11:30 AM CDT documented as of this encounter Care Teams Postulant Relationship Specialty Start Date End Date Allison Garcia APNP [address] [place] [address] PCP - General NURSE PRACTITIONER 12/07/19 documented as of this encounter
--- OUTSIDE RECORDS SUMMARY | 2025-03-30 12:37 | XMS_ITS | Encounter Summary ---
Author Organization [facility] Address [address] [place] [address] Care Team Providers Care Control Board Operator Name Role Phone Allison Garcia Primary Care Provider Encounter Details Date Type Department Care Team (Late st Contact Info) Description 12/07/2019 MyChart Message Enc [facility] Medical Group Family & Internal Medicine [facility] [address] [place] [address] Allison Garcia APNP [address] [place] [address] Test Results Social History Tobacco [...] CDT Gender Identity Female 07/21/2021 10:30 AM CREDIT OFFICE MANAGER Sexual Orientation Bisexual 07/21/2021 10 :30 AM CREDIT OFFICE MANAGER COVID-19 Exposure Response Date Recorded In the [...] documented as of this encounter Care Teams Control Board Operator Relationship Specialty Start Date End Date Allison Garcia APNP [address] [place] [address] PCP - General NURSE PRACTITIONER 12/07/19 documented as of this encounter
--- OUTSIDE RECORDS SUMMARY | 2025-03-30 12:37 | XMS_ITS | Encounter Summary ---
Author Organization [facility] Address [address] [place] [address] Care Team Providers Care Front Desk Officer Name Role Phone Allison Garcia Primary Care Provider Encounter Details Date Type Department Care Team (Late st Contact Info) Description 10/30/2021 Power OLEDst Message Enc [facility] Medical Group Family & Internal Medicine [facility] [address] [place] [address] Allison Garcia APNP [address] [place] [address] New script to satisfy my insurance Social History Tobacco Use Types Packs/Day Years [...] CDT Gender Identity Female 07/21/2021 10:30 AM DEMAND PLANNING MANAGER Sexual Orientation Bisexual 07/21/2021 10 :30 AM DEMAND PLANNING MANAGER documented as of this encounter Plan of Treatment Not on file documented as of this encounter Visit Diagnoses Not on filedocumented in this encounter Additional Health Concerns Assessment Noted Time PHQ-9 Depression Total Score: 22 020 11:30 AM CDT documented as of this encounter Care Teams Front Desk Officer Relationship Specialty Start Date End Date Allison Garcia APNP [address] [place] [address] PCP - General NURSE PRACTITIONER 12/07/19 documented as of this encounter
--- OUTSIDE RECORDS SUMMARY | 2025-03-30 12:37 | XMS_ITS | Clinical Summary ---
Author Organization [facility] Address [facility] [place] [address] Care Team Providers Care Shipping Inspector Name Role Phone RadhaAllison Aishwarya BOX Primary Care Provider Allergies Active Allergy Reactions Criticality Noted Date Comments Metoclopramide Other (see comment) High 04/03/2013 Patient experienced un natural muscle movements In neck. Stiffness in muscles Dystonic reaction Medications levonorgestrel 20 MCG/24HR IUD 1 Device by Intrauterine route. Active naproxen sodium (ANAPROX) 220 MG tablet Take 1 tablet (220 mg total) by mouth 2 (two) times daily as needed. Active eletriptan 40 MG tablet Take 1 tab by mouth once at first sign of migraine. May repeat one time after 2 hours if needed. Max of 2 in 24 hours 1 Active albuterol sulfate HFA 108 (90 Base) MCG/ACT inhalerIndicati ons:COVID-19 INHALE 2 PUFFS INTO THE LUNGS EVERY 6 HOURS NEEDED FOR WHEEZE 8.5 g 1 2 Active omeprazole (PRILOSEC) 40 MG capsule Take 1 capsule (40 mg total) by mouth daily. 2 Active Active Problems Problem Noted Date Diagnosed Date Mixed hyperlipidemia 08/29/2021 Localized osteoarthritis of knee 01/29/2020 Left knee pain, unspecified chronicity 0 Chronic pain of left knee 01/29/2020 Patellofemoral pain syndrome of left knee 2019 Fibromyalgia 12/07/2019 Depression 12/07/2019 Endometriosis 12/07/2019 Osteoarthritis 12/07/2019 Immunizations Immunization Administration Dates Next Due Influenza Adult (Generic) 04/11/2022,,06/02/2020,05/26/2019,2018,05/02/2017,05/22/2016 Tdap (Generic) 07/12/2018 Family History Medical History Relation Comments Arthritis Father Hyperlipidemia Father Hypertension Father Sleep Apnea Father Alcohol Abuse Maternal Grandfather Cancer Maternal Grandfather liver Cancer Maternal Grandmother breast Depression Mother Hypertension Mother Migraines Mother Sleep Apnea Mother TIA Mother Cancer Paternal Grandfather colorectal Cancer Paternal Grandmother kidney Dementia Paternal Grandmother Relation Status Comments Father Maternal Grandfather Maternal Grandmother Mother Paternal Grandfather Paternal Grandmother Social History Tobacco Use Types Packs/Day Years Used Date Smoking Tobacco: Former Cigarettes 1.5 14 1 - 05/02/2019 Smokeless Tobacco: Never Alcohol Use Standard Drinks/Week Comments Yes 0 (1 standard drink = 0.6 oz pur e alcohol) seldomly PHQ-2 Answer Date Recorded Patient Health Questionnaire-2 Score 0 10/09/2022 Comments No Sex and Gender Information Value Date Recorded Sex Assigned at Not on file Legal Sex Female 3:46 PM CDT Gender Identity Female 07/21/2021 10:30 AM FOOD PRODUCTION SUPERVISOR Sexual Orientation Bisexual 07/21/2021 10 :30 AM FOOD PRODUCTION SUPERVISOR Last Filed Vital Signs Vital Sign Reading Time Taken Comments Blood Pressure 132/76 10/09/2022 2:32 PM CDT Pulse 88 10/09/2022 2:32 PM CDT Temperature 37.5 C (99.5 F) 10/09/2022 2:32 PM CDT Respiratory Rate 22 10/09/2022 2:32 PM CDT Oxygen Saturation 96% 10/09/2022 2:32 PM CDT Inhaled Oxygen Concentration - - Weight 94.3 kg (207 lb 12.8 oz) 10/09/2022 2:32 PM CDT Height 170.2 cm (5' 7) 10/09/2022 2:32 PM CDT Body Mass Index 32.55 10/09/2022 2:32 PM CDT Plan of Treatment Health Maintenance Due Date Last Done Comments Cervical Cancer Screening Pa p Smear (Age 30 to 64) Every 3 Years 1986 Annual Physical 1989 Hepatitis C 2004 Hepatitis B Vaccines (1 of 3 - 19+ 3-dose series) 2005 HPV Vaccines (1 - 3-dose SCD M series) 2013 Cervical Cancer Screening Pa p with HPV Testing (Age 30 to 64) Every 5 Years 2016 Cervical Cancer Screening wi th HPV 2016 COVID-19 Vaccine (3 - 2024-2 6 season) 2025 06/17/2021, 09/17/2020 DTaP, Tdap and Td Vaccines ( 2 - Td or Tdap) 07/12/2028 07/12/2018 Meningococcal B Vaccine Aged Out No l onger eligible based on patient's age to complete this topic Meningococcal Vaccine Aged Out No teo cristiana eligible based on patient's age to complete this topic Pneumococcal Vaccine: Pediatrics (0 to 5 Years) and At-Risk Patients (6 to 49 Years) Aged Out No longer eligible b ased on patient's age to complete this topic RSV Immunizations Under 20 Months Aged Out No longer eligible b ased on patient's age to complete this topic Insurance [facility] Care Teams Shipping Inspector Relationship Specialty Start Date End Date Allison Garcia APNP [address] [place] [address] PCP - General NURSE PRACTITIONER 12/07/19
--- OUTSIDE RECORDS SUMMARY | 2025-03-30 12:37 | XMS_ITS | Encounter Summary ---
Author Organization [facility] Address [address] [place] [address] Care Team Providers Care Interior Horticulturist Name Role Phone Allison Garcia Primary Care Provider [phone] Encounter Details Date Type Department Care Team (Late st Contact Info) Description 06/24/2022 MyChart Message Enc [facility] Medical Group Family & Internal Medicine [facility] [address] [place] [address] Allison Garcia APNP [address] [place] [address] Jesse Social History Tobacco Use Types Packs/Day Years [...] CDT Gender Identity Female 07/21/2021 10:30 AM PATIENT FINANCIAL SERVICES MANAGER Sexual Orientation Bisexual 07/21/2021 10 :30 AM PATIENT FINANCIAL SERVICES MANAGER documented as of this encounter Plan of Treatment Not on file documented as of this encounter Visit Diagnoses Not on filedocumented in this encounter Additional Health Concerns Assessment Noted Time PHQ-9 Depression Total Score: 22 020 11:30 AM CDT documented as of this encounter Care Teams Interior Horticulturist Relationship Specialty Start Date End Date Allison Garcia APNP [address] [place] [address] PCP - General NURSE PRACTITIONER 12/07/19 documented as of this encounter
== END 2025-03-30 12:30 | disposition home or self-care (01) ==
PROVIDERS: Visit Provider Obstetrics & Gynecology
DX: N92.0 Excessive and frequent menstruation with regular cycle (principal); Z01.818 Encounter for other preprocedural examination
CPT/HCPCS: 36415; 86850; 86900; 86901

== ENCOUNTER 2025-04-04 00:27 | Day surgery (SDC) | payer OTHER, SELFPAY ==
[2025-03-23 11:16] VITALS: BMI 31.3
--- NOTE | 2025-03-23 11:45 | PC.NURSE ---
Report to the Outpatient Waiting Room, entrance under the green pavilion located off [facility], at time _0830 on date _04/04/25 . Planned Procedure Time: _1030 .? Time changes happen often and if your time is changed the preop area will call you the afternoon before. - You and your visitor will be asked to self-screen and do not enter if you have any COVID symptoms. Please call surgeon if you need to reschedule. - A mask is optional within the hospital at this time. Patients may have clear liquids (water, carbonated beverages, clear teas, apple juice) until 3 hours prior to surgery with a maximum of 20 ounces. - No food from midnight until time of surgery and no smoking, or chewing tobacco (or any form of nicotine). No chewing gum, candy or mints. - Infants may have breast milk until 4 hours before surgery, formula 6 hours prior to surgery. - Children will be allowed to drink immediately following surgery.? If applicable, please bring a bottle or sippy cup to assist with drinking. Juice, water, soda, and popsicles are readily available.? For infants on formula, please bring formula the day of surgery.? Pacifiers are allowed. Take only the following medications with a SIP of water on the morning of surgery: __None DO NOT STOP ANY OF YOUR OTHER PRESCRIPTION MEDICATIONS PRIOR TO SURGERY EXCEPT THE FOLLOWING Hold all vitamins and supplements for 3 days per anesthesiologist. Medications to discontinue per physician _None Date to take last dose_None Please no make-up, nail faroese, hairspray, perfume, deodorant, or body powder the day of surgery.? No jewelry (including any body piercings) or valuables the day of surgery, leave them at home.? Please take a shower or bath the night before, or the morning of, surgery with an antibacterial soap.? Wear comfortable, loose fitting clothing.? Children are encouraged to wear pajamas. - Jewelry must be removed prior to entering the operating room.? Rings and piercings that are not removed may be cut off. - The hospital will not accept responsibility for valuables.? - Please leave all valuables, including medications, at home the day of surgery. If you are going home after surgery, a licensed tow driver must drive you home.? - NO public transportation without another adult if you receive anesthesia. - We recommend that an adult stay with you for 24 hours following discharge. - We also recommend that you do not drive, make important decision, drink alcoholic beverages, or take any drugs that were not prescribed by your health care provider for at least 24 hours after your discharge time. For Pediatric surgeries, we recommend two adults accompany the child home. Follow any additional instructions given to you from your surgeon. Telephone instructions given to _Matteo and asked if any additional questions and then verbalized understanding. Patient advised to call surgeon office or pre surgery nurse liaison [phone] if any additional questions.
[2025-04-04] VITALS (10 sets, daily range): BP systolic 121–132; BP diastolic 69–96; PULSE 79–98; RESP 14–20; TEMP 36.1–36.6; O2SAT 94–100; BMI 32.3
--- OUTSIDE RECORDS SUMMARY | 2025-04-04 00:31 | XMS_ITS | Encounter Summary ---
Author Organization [facility] Address [address] [place] [address] Care Team Providers Care Examiner Rating Clerk Name Role Phone Rita External Provider Primary Care Provider Un available Encounter Details Date Type Department Care Team (Late st Contact Info) Description 09/25/2005 Outpatient Historical [facility], [address] Sandip Sanchez MD [address] [facility] [place] [address] Onychia and Paronychia of Finger (Primary Dx) Social History Tobacco Use Types Packs/Day Years Used Date Smoking Tobacco: Never Assessed Comments Unknown Sex and Gender Information Value Date Recorded Sex Assigned at Not on file Legal Sex Female 4:23 AM COMMERCIAL SALES DIRECTOR Gender Identity Not on file Sexual Orientation Not on file documented as of this encounter Plan of Treatment Not on file documented as of this encounter Visit Diagnoses Diagnosis Onychia and paronychia of finger- Primary documented in this encounter Care Teams Examiner Rating Clerk Relationship Specialty Start Date End Date Jaswinder Salinas Provider PCP - General 04/01/14 documented as of this encounter
--- OUTSIDE RECORDS SUMMARY | 2025-04-04 00:31 | XMS_ITS | Encounter Summary ---
Author Organization [employer] Address [address] [place] [address] Care Team Providers Care Cabin Cleaner Name Role Phone Rita External Provider Primary Care Provider Un available Encounter Details Date Type Department Care Team (Late st Contact Info) Description 09/30/2005 Outpatient Historical [facility] Sandip Sultana MD [address] [place] [address] Social History Tobacco Use Types Packs/Day Years Used Date Smoking Tobacco: Never Assessed Comments Unknown Sex and Gender Information Value Date Recorded Sex Assigned at Not on file Legal Sex Female 4:23 AM SUPERVISOR PACKING ROOM Gender Identity Not on file Sexual Orientation Not on file documented as of this encounter Plan of Treatment Not on file documented as of this encounter Visit Diagnoses Not on filedocumented in this encounter Care Teams Cabin Cleaner Relationship Specialty Start Date End Date Jaswinder Salinas Provider PCP - General 04/01/14 documented as of this encounter
--- OUTSIDE RECORDS SUMMARY | 2025-04-04 00:31 | XMS_ITS | Encounter Summary ---
Author Organization [facility] Address [address] [place] [address] Care Team Providers Care Side Boss Name Role Phone Allison Garcia Primary Care Provider Encounter Details Date Type Department Care Team (Late st Contact Info) Description 10/30/2021 Guverat Message Enc [facility] Medical Group Family & Internal Medicine [facility] [address] [place] [address] Allison Garcia APNP [address] [place] [address] New script to satisfy my [...] CDT Gender Identity Female 07/21/2021 10:30 AM GROUND TRANSPORTATION OPERATOR Sexual Orientation Bisexual 07/21/2021 10 :30 AM GROUND TRANSPORTATION OPERATOR documented as of this encounter Plan of Treatment Not on file documented as of this encounter Visit Diagnoses Not on filedocumented in this encounter Additional Health Concerns Assessment Noted Time PHQ-9 Depression Total Score: 22 020 11:30 AM CDT documented as of this encounter Care Teams Side Boss Relationship Specialty Start Date End Date Allison Garcia APNP [address] [place] [address] PCP - General NURSE PRACTITIONER 12/07/19 documented as of this encounter
--- OUTSIDE RECORDS SUMMARY | 2025-04-04 00:31 | XMS_ITS | Encounter Summary ---
Author Organization [facility] Address [facility] [place] [address] Care Team Providers Care Block Feeder Name Role Phone Allison Garcia Primary Care Provider Encounter Details Date Type Department Care Team (Late st Contact Info) Description 07/16/2021 TaskRabbithart Message Enc [facility] Medical Group Family & Internal Medicine [facility] [address] [place] [address] Allison Garcia APNP [address] [place] [address] Switching from SSRI? Social History [...] CDT Gender Identity Female 07/21/2021 10:30 AM NDT INSPECTOR Sexual Orientation Bisexual 07/21/2021 10 :30 AM NDT INSPECTOR COVID-19 Exposure Response Date Recorded In the last month, have you been in contact with someone who was confirmed or suspected to have Coronavirus / COVID-19? No / Unsure 07/19/2021 11:35 AM NDT INSPECTOR documented as of this encounter Plan of Treatment Not on file documented as of this encounter Visit Diagnoses Not on filedocumented in this encounter Additional Health Concerns Assessment Noted Time PHQ-9 Depression Total Score: 22 020 11:30 AM CDT documented as of this encounter Care Teams Block Feeder Relationship Specialty Start Date End Date Allison Garcia APNP [address] [place] [address] PCP - General NURSE PRACTITIONER 12/07/19 documented as of this encounter
--- OUTSIDE RECORDS SUMMARY | 2025-04-04 00:31 | XMS_ITS | Clinical Summary ---
Author Organization [facility] Address [address] [place] [address] Care Team Providers Care Catering Truck Operator Name Role Phone Rita, External Provider Primary [...] on file Legal Sex Female 4:23 AM CORPORATION PILOT Gender Identity Not on file Sexual Orientation [...] SMEAR 2016 INFLUENZA VACCINE (#1) [address] [facility] [place] [employer] Care Teams Catering Truck Operator Relationship Specialty Start Date End Date Rita, External Provider PCP - General 04/01/14
--- OUTSIDE RECORDS SUMMARY | 2025-04-04 00:31 | XMS_ITS | Encounter Summary ---
Author Organization [facility] Address [facility] [place] [address] Care Team Providers Care Camp Recreation Specialist Name Role Phone Allison Garcia Primary Care Provider Encounter Details Date Type Department Care Team (Late st Contact Info) Description 02/18/2022 MyChart Message Enc [facility] Medical Group Family & Internal Medicine [facility] [address] [place] [address] Allison Garcia APNP [address] [place] [address] Covid alleviation Social History Tobacco [...] CDT Gender Identity Female 07/21/2021 10:30 AM WIRELINE SUPERVISOR Sexual Orientation Bisexual 07/21/2021 10 :30 AM WIRELINE SUPERVISOR COVID-19 Exposure Response Date Recorded In the [...] documented as of this encounter Care Teams Camp Recreation Specialist Relationship Specialty Start Date End Date Allison Garcia APNP [address] [place] [address] PCP - General NURSE PRACTITIONER 12/07/19 documented as of this encounter
--- OUTSIDE RECORDS SUMMARY | 2025-04-04 00:31 | XMS_ITS | Encounter Summary ---
Author Organization [employer] Address [address] [place] [address] Care Team Providers Care Alternative Energy Technician Name Role Phone Rita External Provider Primary Care Provider Un available Encounter Details Date Type Department Care Team (Late st Contact Info) Description 09/23/2005 Outpatient Historical [facility] Sandip Sultana MD [address] [place] [address] Social History Tobacco Use Types Packs/Day Years Used Date Smoking Tobacco: Never Assessed Comments Unknown Sex and Gender Information Value Date Recorded Sex Assigned at Not on file Legal Sex Female 4:23 AM RN SURGERY Gender Identity Not on file Sexual Orientation Not on file documented as of this encounter Plan of Treatment Not on file documented as of this encounter Visit Diagnoses Not on filedocumented in this encounter Care Teams Alternative Energy Technician Relationship Specialty Start Date End Date Jaswinder Salinas Provider PCP - General 04/01/14 documented as of this encounter
--- OUTSIDE RECORDS SUMMARY | 2025-04-04 00:31 | XMS_ITS | Encounter Summary ---
Author Organization [facility] Address [address] [place] [address] Care Team Providers Care Cycle Analyst Name Role Phone Allison Garcia Primary Care Provider [phone] Encounter Details Date Type Department Care Team (Late st Contact Info) Description 11/11/2021 MyChart Message Enc [facility] Medical Group Family & Internal Medicine [facility] [address] [place] [address] Allison Garcia APNP [address] [place] [address] Note for work Social History [...] CDT Gender Identity Female 07/21/2021 10:30 AM DIRECTOR CPG Sexual Orientation Bisexual 07/21/2021 10 :30 AM DIRECTOR CPG documented as of this encounter Progress Notes [...] documented as of this encounter Care Teams Cycle Analyst Relationship Specialty Start Date End Date Allison Garcia APNP [address] [place] [address] PCP - General NURSE PRACTITIONER 12/07/19 documented as of this encounter
--- OUTSIDE RECORDS SUMMARY | 2025-04-04 00:31 | XMS_ITS | Encounter Summary ---
Author Organization [email or web address] Address [address] [place] [address] Care Team Providers Care Creative Perfumer Name Role Phone Rita External Provider Primary Care Provider Un available Encounter Details Date Type Department Care Team (Latest Contact Info) Description 11/06/2002 Inpatient Historical HIS [place] [address] [address] MIGRAINE NOS W/O MENTN INTRACTABLE (Primary Dx) Social History Tobacco Use Types Packs/Day Years Used Date Smoking Tobacco: Never Assessed Comments Unknown Sex and Gender Information Value Date Recorded Sex Assigned at Not on file Legal Sex Female 4:23 AM BOTTOMING ROOM SUPERVISOR Gender Identity Not on file Sexual Orientation Not on file documented as of this encounter Plan of Treatment Not on file documented as of this encounter Visit Diagnoses Diagnosis Migraine, unspecified, without mention of intractable migraine without mention of status migrainosus- Primary documented in this encounter Care Teams Creative Perfumer Relationship Specialty Start Date End Date Rita External Provider PCP - General 04/01/14 documented as of this encounter
--- OUTSIDE RECORDS SUMMARY | 2025-04-04 00:31 | XMS_ITS | Encounter Summary ---
Author Organization [facility] Address [address] [place] [address] Care Team Providers Care Network Systems Analyst Name Role Phone Allison Garcia Primary Care Provider Encounter Details Date Type Department Care Team (Late st Contact Info) Description 01/06/2021 Fifty100t Message Enc [facility] Medical Group Family & Internal Medicine [facility] [address] [place] [address] Allison Garcia APNP [address] [place] [address] Question Social History Tobacco Use [...] CDT Gender Identity Female 07/21/2021 10:30 AM CAR RECORD CLERK Sexual Orientation Bisexual 07/21/2021 10 :30 AM CAR RECORD CLERK COVID-19 Exposure Response Date Recorded In the [...] documented as of this encounter Care Teams Network Systems Analyst Relationship Specialty Start Date End Date Allison Garcia APNP [address] [place] [address] PCP - General NURSE PRACTITIONER 12/07/19 documented as of this encounter
--- OUTSIDE RECORDS SUMMARY | 2025-04-04 00:31 | XMS_ITS | Encounter Summary ---
Author Organization [facility] Address [facility] [place] [address] Care Team Providers Care Excel Analyst Name Role Phone Allison Garcia Primary Care Provider [phone] Encounter Details Date Type Department Care Team (Late st Contact Info) Description 02/23/2022 The Label Corpt Message Enc [facility] Medical Group Family & Internal Medicine [facility] [address] [place] [address] Allison Garcia APNP [address] [place] [address] On the mend! Social History [...] CDT Gender Identity Female 07/21/2021 10:30 AM SOLE SKIVER Sexual Orientation Bisexual 07/21/2021 10 :30 AM SOLE SKIVER COVID-19 Exposure Response Date Recorded In the [...] documented as of this encounter Care Teams Excel Analyst Relationship Specialty Start Date End Date Allison Garcia APNP [address] [place] [address] PCP - General NURSE PRACTITIONER 12/07/19 documented as of this encounter
--- OUTSIDE RECORDS SUMMARY | 2025-04-04 00:31 | XMS_ITS | Encounter Summary ---
Author Organization [employer] Address [address] [place] [address] Care Team Providers Care Facilities Coordinator Name Role Phone Rita External Provider Primary Care Provider Un available Encounter Details Date Type Department Care Team (Late st Contact Info) Description 10/02/2005 Outpatient Historical [facility] Sandip Sultana MD [address] [place] [address] Social History Tobacco Use Types Packs/Day Years Used Date Smoking Tobacco: Never Assessed Comments Unknown Sex and Gender Information Value Date Recorded Sex Assigned at Not on file Legal Sex Female 4:23 AM WATER RESOURCE ENGINEER Gender Identity Not on file Sexual Orientation Not on file documented as of this encounter Plan of Treatment Not on file documented as of this encounter Visit Diagnoses Not on filedocumented in this encounter Care Teams Facilities Coordinator Relationship Specialty Start Date End Date Jaswinder Salinas Provider PCP - General 04/01/14 documented as of this encounter
--- OUTSIDE RECORDS SUMMARY | 2025-04-04 00:31 | XMS_ITS | Encounter Summary ---
Author Organization [facility] Address [address] [place] [address] Care Team Providers Care Asphalt Distributor Tender Name Role Phone Allison Garcia Primary Care Provider Encounter Details Date Type Department Care Team (Late st Contact Info) Description 09/01/2021 SI-BONEt Message Enc [facility] Medical Group Family & Internal Medicine [facility] [address] [place] [address] Allison Garcia APNP [address] [place] [address] Response to letter Social History [...] CDT Gender Identity Female 07/21/2021 10:30 AM CLIENT RELATIONSHIP CONSULTANT Sexual Orientation Bisexual 07/21/2021 10 :30 AM CLIENT RELATIONSHIP CONSULTANT COVID-19 Exposure Response Date Recorded In the last 10 days, have yo u been in contact with someone who was confirmed or suspected to have Coronavirus/COVID-19? No / Unsure 08/29/2021 9:33 AM CLIENT RELATIONSHIP CONSULTANT documented as of this encounter Plan of Treatment Not on file documented as of this encounter Visit Diagnoses Not on filedocumented in this encounter Additional Health Concerns Assessment Noted Time PHQ-9 Depression Total Score: 22 020 11:30 AM CDT documented as of this encounter Care Teams Asphalt Distributor Tender Relationship Specialty Start Date End Date Allison Garcia APNP [address] [place] [address] PCP - General NURSE PRACTITIONER 12/07/19 documented as of this encounter
--- OUTSIDE RECORDS SUMMARY | 2025-04-04 00:31 | XMS_ITS | Clinical Summary ---
Author Organization [facility] Address [facility] [place] [address] Care Team Providers Care Recycle Driver Name Role Phone RadhaAllison Aishwarya BOX Primary Care Provider [phone] Allergies Active Allergy Reactions Criticality Noted Date [...] Gender Identity Female 07/21/2021 10:30 AM MANAGER DOMESTIC Sexual Orientation Bisexual 07/21/2021 10 :30 AM MANAGER DOMESTIC Last Filed Vital Signs Vital Sign Reading [...] patient's age to complete this topic Insurance [facility] Care Teams Recycle Driver Relationship Specialty Start Date End Date Allison Garcia APNP [address] [place] [address] PCP - General NURSE PRACTITIONER 12/07/19
--- OUTSIDE RECORDS SUMMARY | 2025-04-04 00:31 | XMS_ITS | Encounter Summary ---
Author Organization [facility] Address [facility] [place] [address] Care Team Providers Care Oven Heater Name Role Phone Allison Garcia Primary Care Provider Encounter Details Date Type Department Care Team (Late st Contact Info) Description 02/25/2022 MyChart Message Enc [facility] Medical Group Family & Internal Medicine [facility] [address] [place] [address] Allison Garcia APNP [address] [place] [address] Post-covid fatigue Social History Tobacco [...] CDT Gender Identity Female 07/21/2021 10:30 AM ASSOCIATE SOFTWARE APPLICATION ENGINEER Sexual Orientation Bisexual 07/21/2021 10 :30 AM ASSOCIATE SOFTWARE APPLICATION ENGINEER COVID-19 Exposure Response Date Recorded In [...] documented as of this encounter Care Teams Oven Heater Relationship Specialty Start Date End Date Allison Garcia APNP [address] [place] [address] PCP - General NURSE PRACTITIONER 12/07/19 documented as of this encounter
--- OUTSIDE RECORDS SUMMARY | 2025-04-04 00:31 | XMS_ITS | Encounter Summary ---
Author Organization [facility] Address [facility] [place] [address] Care Team Providers Care Hemmer Automatic Name Role Phone Allison Garcia Primary Care Provider Encounter Details Date Type Department Care Team (Late st Contact Info) Description 08/26/2021 Bioparaisohart Message Enc [facility] Medical Group Family & Internal Medicine [facility] [address] [place] [address] Allison Gacria APNP [address] [place] [address] Question regarding URINALYSIS WI REFLEX [...] CDT Gender Identity Female 07/21/2021 10:30 AM INTERNATIONAL MARKETING SPECIALIST Sexual Orientation Bisexual 07/21/2021 10 :30 AM INTERNATIONAL MARKETING SPECIALIST COVID-19 Exposure Response Date Recorded In the last 10 days, have yo u been in contact with someone who was confirmed or suspected to have Coronavirus/COVID-19? No / Unsure 08/29/2021 9:33 AM INTERNATIONAL MARKETING SPECIALIST documented as of this encounter Plan of Treatment Not on file documented as of this encounter Visit Diagnoses Not on filedocumented in this encounter Additional Health Concerns Assessment Noted Time PHQ-9 Depression Total Score: 22 020 11:30 AM CDT documented as of this encounter Care Teams Hemmer Automatic Relationship Specialty Start Date End Date Allison Garcia APNP [address] [place] [address] PCP - General NURSE PRACTITIONER 12/07/19 documented as of this encounter
--- OUTSIDE RECORDS SUMMARY | 2025-04-04 00:32 | XMS_ITS | Encounter Summary ---
Author Organization [facility] Address [address] [place] [address] Care Team Providers Care Aircraft Charter Dispatcher Name Role Phone Allison Garcia Primary Care Provider Encounter Details Date Type Department Care Team (Late st Contact Info) Description 12/07/2019 MyChart Message Enc [facility] Medical Group Family & Internal Medicine [facility] [address] [place] [address] Allison Garcia APNP [address] [place] [address] RE: Other Social History Tobacco [...] CDT Gender Identity Female 07/21/2021 10:30 AM REINSPECTOR Sexual Orientation Bisexual 07/21/2021 10 :30 AM REINSPECTOR COVID-19 Exposure Response Date Recorded In the [...] documented as of this encounter Care Teams Aircraft Charter Dispatcher Relationship Specialty Start Date End Date Allison Garcia APNP [address] [place] [address] PCP - General NURSE PRACTITIONER 12/07/19 documented as of this encounter
--- OUTSIDE RECORDS SUMMARY | 2025-04-04 00:32 | XMS_ITS | Encounter Summary ---
Author Organization [facility] Address [facility] [place] [address] Care Team Providers Care Manager Operations Research Name Role Phone Allison Garcia Primary Care Provider Encounter Details Date Type Department Care Team (Late st Contact Info) Description 06/02/2022 MyChart Message Enc [facility] Medical Group Family & Internal Medicine [facility] [address] [place] [address] Allison Garcia APNP [address] [place] [address] Upper GI endo yesterday Social [...] CDT Gender Identity Female 07/21/2021 10:30 AM VOLUNTEER PATIENT REPRESENTATIVE Sexual Orientation Bisexual 07/21/2021 10 :30 AM VOLUNTEER PATIENT REPRESENTATIVE documented as of this encounter Plan of Treatment Not on file documented as of this encounter Visit Diagnoses Not on filedocumented in this encounter Additional Health Concerns Assessment Noted Time PHQ-9 Depression Total Score: 22 020 11:30 AM CDT documented as of this encounter Care Teams Manager Operations Research Relationship Specialty Start Date End Date Allison Garcia APNP [address] [place] [address] PCP - General NURSE PRACTITIONER 12/07/19 documented as of this encounter
--- OUTSIDE RECORDS SUMMARY | 2025-04-04 00:32 | XMS_ITS | Encounter Summary ---
Author Organization [facility] Address [facility] [place] [address] Care Team Providers Care Commanding Officer Motorized Squad Name Role Phone Allison Garcia Primary Care Provider Encounter Details Date Type Department Care Team (Late st Contact Info) Description 12/18/2020 BigTeamshart Message Enc [facility] Medical Group Family & Internal Medicine [facility] [address] [place] [address] Allison Garcia APNP [address] [place] [address] Medication Questions Social History Tobacco [...] CDT Gender Identity Female 07/21/2021 10:30 AM COORDINATE MEASURING EQUIPMENT OPERATOR Sexual Orientation Bisexual 07/21/2021 10 :30 AM COORDINATE MEASURING EQUIPMENT OPERATOR documented as of this encounter Plan of Treatment Not on file documented as of this encounter Visit Diagnoses Not on filedocumented in this encounter Additional Health Concerns Assessment Noted Time PHQ-9 Depression Total Score: 22 020 11:30 AM CDT documented as of this encounter Care Teams Commanding Officer Motorized Squad Relationship Specialty Start Date End Date Allison Garcia APNP [address] [place] [address] PCP - General NURSE PRACTITIONER 12/07/19 documented as of this encounter
--- OUTSIDE RECORDS SUMMARY | 2025-04-04 00:32 | XMS_ITS | Encounter Summary ---
Author Organization [facility] Address [address] [place] [address] Care Team Providers Care Sales Enablement Lead Name Role Phone Allison Garcia Primary Care Provider Encounter Details Date Type Department Care Team (Late st Contact Info) Description 06/24/2022 MyChart Message Enc [facility] Medical Group Family & Internal Medicine [facility] [address] [place] [address] Allison Garcia APNP [address] [place] [address] Jesse Social History Tobacco Use [...] CDT Gender Identity Female 07/21/2021 10:30 AM BATT MACHINE OPERATOR Sexual Orientation Bisexual 07/21/2021 10 :30 AM BATT MACHINE OPERATOR documented as of this encounter Plan of Treatment Not on file documented as of this encounter Visit Diagnoses Not on filedocumented in this encounter Additional Health Concerns Assessment Noted Time PHQ-9 Depression Total Score: 22 020 11:30 AM CDT documented as of this encounter Care Teams Sales Enablement Lead Relationship Specialty Start Date End Date Allison Garcia APNP [address] [place] [phone] PCP - General NURSE PRACTITIONER 12/07/19 documented as of this encounter
--- OUTSIDE RECORDS SUMMARY | 2025-04-04 00:32 | XMS_ITS | Encounter Summary ---
Author Organization [employer] Address [address] [place] [address] Care Team Providers Care Control Panel Operator Crude Unit Name Role Phone Rita External Provider Primary Care Provider Un available Encounter Details Date Type Department Care Team (Latest Contact Info) Description 05/12/2000 Inpatient Historical HIS [place] [address] [address] Headache(784.0) (Primary Dx) Social History Tobacco Use Types Packs/Day Years Used Date Smoking Tobacco: Never Assessed Comments Unknown Sex and Gender Information Value Date Recorded Sex Assigned at Not on file Legal Sex Female 4:23 AM GEOMETRY PROFESSOR Gender Identity Not on file Sexual Orientation Not on file documented as of this encounter Plan of Treatment Not on file documented as of this encounter Visit Diagnoses Diagnosis Headache(784.0)- Primary Headache documented in this encounter Care Teams Control Panel Operator Crude Unit Relationship Specialty Start Date End Date Rita External Provider PCP - General 04/01/14 documented as of this encounter
--- OUTSIDE RECORDS SUMMARY | 2025-04-04 00:32 | XMS_ITS | Encounter Summary ---
Author Organization [employer] Address [address] [place] [address] Care Team Providers Care Infrastructure Solutions Architect Name Role Phone Rita External Provider Primary Care Provider Un available Encounter Details Date Type Department Care Team (Late st Contact Info) Description 10/13/2000 Outpatient Historical [place] [address] [place] [address] Pain in joint, lower leg (Primary Dx) Social History Tobacco Use Types Packs/Day Years Used Date Smoking Tobacco: Never Assessed Comments Unknown Sex and Gender Information Value Date Recorded Sex Assigned at Not on file Legal Sex Female 4:23 AM SUPERVISOR CHAR HOUSE Gender Identity Not on file Sexual Orientation Not on file documented as of this encounter Plan of Treatment Not on file documented as of this encounter Visit Diagnoses Diagnosis Pain in joint, lower leg- Primary documented in this encounter Care Teams Infrastructure Solutions Architect Relationship Specialty Start Date End Date Jaswinder Salinas Provider PCP - General 04/01/14 documented as of this encounter
--- OUTSIDE RECORDS SUMMARY | 2025-04-04 00:32 | XMS_ITS | Encounter Summary ---
Author Organization [facility] Address [address] [place] [address] Care Team Providers Care Application Development Director Name Role Phone Allison Garcia Primary Care Provider [phone] Encounter Details Date Type Department Care Team (Late st Contact Info) Description 12/07/2019 MyChart Message Enc [facility] Family & Internal Medicine [facility] [address] [place] [address] Allison Garcia APNP [address] [place] [address] Test Results Social History Tobacco [...] CDT Gender Identity Female 07/21/2021 10:30 AM SEWING MACHINE OPERATOR PAPER BAGS Sexual Orientation Bisexual 07/21/2021 10 :30 AM SEWING MACHINE OPERATOR PAPER BAGS COVID-19 Exposure Response Date Recorded In the [...] documented as of this encounter Care Teams Application Development Director Relationship Specialty Start Date End Date Allison Garcia APNP [address] [place] [address] PCP - General NURSE PRACTITIONER 12/07/19 documented as of this encounter
--- OUTSIDE RECORDS SUMMARY | 2025-04-04 00:32 | XMS_ITS | Encounter Summary ---
Author Organization [facility] Address [address] [place] [address] Care Team Providers Care Wood Crafter Name Role Phone Allison Garcia Primary Care Provider Encounter Details Date Type Department Care Team (Late st Contact Info) Description 01/04/[address] [facility] Family & Internal Medicine [facility] [address] [place] [address] Allison Garcia APNP [address] [place] [address] RE: Medication Questions Social History [...] CDT Gender Identity Female 07/21/2021 10:30 AM RELOCATION COMMISSIONER Sexual Orientation Bisexual 07/21/2021 10 :30 AM RELOCATION COMMISSIONER COVID-19 Exposure Response Date Recorded In the [...] documented as of this encounter Care Teams Wood Crafter Relationship Specialty Start Date End Date Allison Garcia APNP [address] [place] [address] PCP - General NURSE PRACTITIONER 12/07/19 documented as of this encounter
--- OUTSIDE RECORDS SUMMARY | 2025-04-04 00:32 | XMS_ITS | Encounter Summary ---
Author Organization [facility] Address [address] [place] [address] Care Team Providers Care Solid Waste Facility Operator Name Role Phone Allison Garcia Primary Care Provider [phone] Encounter Details Date Type Department Care Team (Late st Contact Info) Description 12/20/[address] [facility] Family & Internal Medicine [facility] [address] [place] [address] Allison Garcia APNP [address] [place] [address] Follow Up/Update Social History Tobacco [...] CDT Gender Identity Female 07/21/2021 10:30 AM SEARCH COORDINATOR Sexual Orientation Bisexual 07/21/2021 10 :30 AM SEARCH COORDINATOR documented as of this encounter Plan of Treatment Not on file documented as of this encounter Visit Diagnoses Not on filedocumented in this encounter Additional Health Concerns Assessment Noted Time PHQ-9 Depression Total Score: 22 020 11:30 AM CDT documented as of this encounter Care Teams Solid Waste Facility Operator Relationship Specialty Start Date End Date Allison Garcia APNP [address] [place] [address] PCP - General NURSE PRACTITIONER 12/07/19 documented as of this encounter
--- OUTSIDE RECORDS SUMMARY | 2025-04-04 00:32 | XMS_ITS | Encounter Summary ---
Author Organization [employer] Address [address] [place] [address] Care Team Providers Care Uke Operator Name Role Phone Rita External Provider Primary Care Provider Un available Encounter Details Date Type Department Care Team (Latest Contact Info) Description 12/27/2000 Outpatient Historical HIS CARDIOPULMONARY Montesinos, Jose Escobar MD [address] [place] [address] Follow-up examination, following other surgery (Primary Dx) Social History Tobacco Use Types Packs/Day Years Used Date Smoking Tobacco: Never Assessed Comments Unknown Sex and Gender Information Value Date Recorded Sex Assigned at Not on file Legal Sex Female 4:23 AM SOFTWARE DEVELOPMENT INTERN Gender Identity Not on file Sexual Orientation Not on file documented as of this encounter Plan of Treatment Not on file documented as of this encounter Visit Diagnoses Diagnosis Follow-up examination, following other surgery- Primary documented in this encounter Care Teams Uke Operator Relationship Specialty Start Date End Date Jaswinder Salinas Provider PCP - General 04/01/14 documented as of this encounter
--- OUTSIDE RECORDS SUMMARY | 2025-04-04 00:32 | XMS_ITS | Encounter Summary ---
Author Organization [employer] Address [address] [place] [address] Care Team Providers Care Shuttle Fitting Supervisor Name Role Phone Rita External Provider Primary Care Provider Un available Encounter Details Date Type Department Care Team (Latest Contact Info) Description 08/29/2001 Outpatient Historical HIS PAT[place] [address] [address] MIGRAINE NEC W/O MENTN INTRACTABLE (Primary Dx) Social History Tobacco Use Types Packs/Day Years Used Date Smoking Tobacco: Never Assessed Comments Unknown Sex and Gender Information Value Date Recorded Sex Assigned at Not on file Legal Sex Female 4:23 AM FINAL ASSEMBLER BOAT Gender Identity Not on file Sexual Orientation Not on file documented as of this encounter Plan of Treatment Not on file documented as of this encounter Visit Diagnoses Diagnosis Other forms of migraine, without mention of intractable migraine without mention of status migrainosus- Primary documented in this encounter Care Teams Shuttle Fitting Supervisor Relationship Specialty Start Date End Date Rita External Provider PCP - General 04/01/14 documented as of this encounter
--- OUTSIDE RECORDS SUMMARY | 2025-04-04 00:32 | XMS_ITS | Encounter Summary ---
Author Organization [facility] Address [facility]ly [facility] [place] [address] Care Team Providers Care Security Installation Sales Technician Name Role Phone Allison Garcia Primary Care Provider [phone] Encounter Details Date Type Department Care Team (Late st Contact Info) Description 02/15/2020 MyChart Message Enc [facility] Group Family & Internal Medicine [facility] [address] [place] [address] Allison Garcia APNP [address] [place] [address] RE: Follow Up/Update Social History [...] CDT Gender Identity Female 07/21/2021 10:30 AM AUTOMOTIVE SALES MANAGER Sexual Orientation Bisexual 07/21/2021 10 :30 AM AUTOMOTIVE SALES MANAGER COVID-19 Exposure Response Date Recorded In [...] documented as of this encounter Care Teams Security Installation Sales Technician Relationship Specialty Start Date End Date Allison Garcia APNP [address] [place] [address] PCP - General NURSE PRACTITIONER 12/07/19 documented as of this encounter
--- OUTSIDE RECORDS SUMMARY | 2025-04-04 00:32 | XMS_ITS | Encounter Summary ---
Author Organization [facility] Address [address] [place] [address] Care Team Providers Care Mail Handlers Supervisor Name Role Phone Allison Garcia Primary Care Provider Encounter Details Date Type Department Care Team (Late st Contact Info) Description 12/17/2020 [employer] Message Enc [facility] Medical Group Family & Internal Medicine [facility] [address] [place] [address] Allison Garcia APNP [address] [place] [address] Medication Questions Social History Tobacco [...] CDT Gender Identity Female 07/21/2021 10:30 AM CAMP COOK Sexual Orientation Bisexual 07/21/2021 10 :30 AM CAMP COOK documented as of this encounter Plan of Treatment Not on file documented as of this encounter Visit Diagnoses Not on filedocumented in this encounter Additional Health Concerns Assessment Noted Time PHQ-9 Depression Total Score: 22 020 11:30 AM CDT documented as of this encounter Care Teams Mail Handlers Supervisor Relationship Specialty Start Date End Date Allison Garcia APNP [address] [place] [address] PCP - General NURSE PRACTITIONER 12/07/19 documented as of this encounter
--- OUTSIDE RECORDS SUMMARY | 2025-04-04 00:32 | XMS_ITS | Encounter Summary ---
Author Organization [facility] Address [address] [place] [address] Care Team Providers Care Note Specialist Name Role Phone Allison Garcia Primary Care Provider Encounter Details Date Type Department Care Team (Late st Contact Info) Description 02/12/2020 MyChart Message Enc [facility] Medical Group Family & Internal Medicine [facility] [address] [place] [address] Allison Garica APNP [address] [place] [address] Test Results Social History Tobacco [...] CDT Gender Identity Female 07/21/2021 10:30 AM PRINT SHOP ASSISTANT Sexual Orientation Bisexual 07/21/2021 10 :30 AM PRINT SHOP ASSISTANT COVID-19 Exposure Response Date Recorded In [...] documented as of this encounter Care Teams Note Specialist Relationship Specialty Start Date End Date Allison Garcia APNP [address] [place] [address] PCP - General NURSE PRACTITIONER 12/07/19 documented as of this encounter
--- OUTSIDE RECORDS SUMMARY | 2025-04-04 00:32 | XMS_ITS | Encounter Summary ---
Author Organization [facility] Address [address] [place] [address] Care Team Providers Care Booking Officer Name Role Phone Allison Garcia Primary Care Provider Encounter Details Date Type Department Care Team (Late st Contact Info) Description 04/05/2020 [employer] Message Enc [facility] Medical Group Family & Internal Medicine [facility] [address] [place] [address] Allison Garcia APNP [address] [place] [address] RE: Question Social History Tobacco [...] CDT Gender Identity Female 07/21/2021 10:30 AM GEOGRAPHIC INFORMATION SYSTEMS MANAGER Sexual Orientation Bisexual 07/21/2021 10 :30 AM GEOGRAPHIC INFORMATION SYSTEMS MANAGER documented as of this encounter Plan of Treatment Not on file documented as of this encounter Visit Diagnoses Not on filedocumented in this encounter Additional Health Concerns Assessment Noted Time PHQ-9 Depression Total Score: 22 020 11:30 AM CDT documented as of this encounter Care Teams Booking Officer Relationship Specialty Start Date End Date Allison Garcia APNP [address] [place] [address] PCP - General NURSE PRACTITIONER 12/07/19 documented as of this encounter
--- OUTSIDE RECORDS SUMMARY | 2025-04-04 00:32 | XMS_ITS | Encounter Summary ---
Author Organization [facility] Address [address] [place] [address] Care Team Providers Care Installment Account Checker Name Role Phone Allison Garcia Primary Care Provider Encounter Details Date Type Department Care Team (Late st Contact Info) Description 02/04/2020 MyChart Message Enc [facility] Medical Group Family & Internal Medicine [facility] [address] [place] [address] Allison Garcia APNP [address] [place] [address] RE: Medication Questions Social History [...] CDT Gender Identity Female 07/21/2021 10:30 AM ACCOUNT ADJUSTER Sexual Orientation Bisexual 07/21/2021 10 :30 AM ACCOUNT ADJUSTER COVID-19 Exposure Response Date Recorded In the [...] documented as of this encounter Care Teams Installment Account Checker Relationship Specialty Start Date End Date Allison Garcia APNP [address] [place] [address] PCP - General NURSE PRACTITIONER 12/07/19 documented as of this encounter
--- OUTSIDE RECORDS SUMMARY | 2025-04-04 00:32 | XMS_ITS | Encounter Summary ---
Author Organization [facility] Address [address] [place] [address] Care Team Providers Care Weather Reporter Name Role Phone Allison Garcia ISAURO Primary Care Provider Encounter Details Date Type Department Care Team (Late st Contact Info) Description 03/02/2020 MyChart Message Enc [facility] Medical Group Multispecialty Care - [facility] [address] [place] [address] Jamie Cordova MD [address] [place] [address] RE: Question Social History Tobacco [...] CDT Gender Identity Female 07/21/2021 10:30 AM BRICK SIDING APPLICATOR Sexual Orientation Bisexual 07/21/2021 10 :30 AM BRICK SIDING APPLICATOR COVID-19 Exposure Response Date Recorded In the [...] documented as of this encounter Care Teams Weather Reporter Relationship Specialty Start Date End Date Allison Garcia APNP [address] [place] [address] PCP - General NURSE PRACTITIONER 12/07/19 documented as of this encounter
--- OUTSIDE RECORDS SUMMARY | 2025-04-04 00:32 | XMS_ITS | Encounter Summary ---
Author Organization [employer] Address [address] [place] [address] Care Team Providers Care Economics Instructor Name Role Phone Rita External Provider Primary [...] on file Legal Sex Female 4:23 AM FRAMING SPECIALIST Gender Identity Not on file Sexual Orientation Not on file documented as of this encounter Plan of Treatment Not on file documented as of this encounter Visit Diagnoses Diagnosis Migraine, unspecified, without mention of intractable migraine without mention of status migrainosus- Primary documented in this encounter Care Teams Economics Instructor Relationship Specialty Start Date End Date Rita External Provider PCP - General 04/01/14 documented as of this encounter
--- OUTSIDE RECORDS SUMMARY | 2025-04-04 00:32 | XMS_ITS | Clinical Summary ---
Author Organization [facility] Address [address] [facility] [place] [address] Care Team Providers Care Kennel Worker Name Role Phone Allison Garcia APRN-PREPARED FOODS TEAM LEADER Primary Care Provider Source Comments [facility],non-owned Affiliates and Associated Physician Practices is amultiple site organization consisting of ambulatory clinics and hospital sitesin [place], [place], [place] and [place]. This disclosure is being madepursuant to the Care Everywhere program and may not contain all information available regarding this patient. Last updated 18.[facility] [employer] Allergies Active Allergy Reactions Criticality Noted Date [...] Job Start Date Job End Date joleen territory manager general sales Not on file Not on file Not on file Last Filed Vital Signs Vital Sign Reading Time Taken Comments Blood Pressure 113/82 05/06/2020 10:45 AM CDT Pulse 73 05/06/2020 10:45 AM CDT Temperature 36.6 C (97.8 F) 04/22/2020 7:49 AM CDT Respiratory Rate 18 05/26/2019 2:17 PM [employer] Oxygen Saturation 98% 04/22/2020 7:49 AM CDT [...] patient's age to complete this topic Insurance [facility] [place] [id number] [facility] Care Teams Kennel Worker Relationship Specialty Start Date End Date Allison Garcia, RV BODY MECHANIC-PREPARED FOODS TEAM LEADER [address] [place] [address] PCP - General 02/14/20
[2025-04-04] MEDS: ACETAMINOPHEN 500 MG TABLET 1000 MG PO ×3 (09:30→23:47)
--- NOTE | 2025-04-04 09:33 | WPDANESEPPF ---
Anes - Initial Pre Proc Eval Procedure: Operation Date: 04/04/25 10:30 Proposed Procedures p Robotic Assisted Hysterectomy with Bilateral Salpingectomy - Dayo Marcelo MD Date/Time: 04/04/25 09:33 Surgeon: Dayo Marcelo MD Pre Op Diagnosis: menorrhagia with reg cycle Patient Data Age: 39 Gender: F Height: 1.7 m Weight: 90.72 kg Last Vital Signs Temp 97.9 F 04/04/25 08:52 Pulse 85 04/04/25 08:52 Resp 14 04/04/25 08:52 BP 132/79 04/04/25 08:52 Pulse Ox 97 04/04/25 08:52 Allergies Allergy/AdvReac Type Severity Reaction Status Date / Time metoclopramide Allergy Severe Unknown Verified 04/04/25 08:49 Home Medications ?Medication ?Instructions ?Recorded ?Confirmed ?Type levonorgestrel (Mirena) 1 device intrauterine ONCE 03/23/25 03/23/25 History Patient hx anesthesia problems: none Family hx anesthesia problems: none Results Review: All pre-operative results and documents have been reviewed as part of the pre-operative evaluation. [facility] Past Medical History Medical History Retained food in stomach GERD (gastroesophageal reflux disease) History of fibromyalgia Hx of irritable bowel syndrome Hx of migraines Hx of gastroesophageal reflux (GERD) Hx of chronic arthritis Hx of seasonal allergies Surgical History Surgical History Hx of appendectomy Hx of arthroscopic knee surgery Family History Family History Father Hypertension Mother Hypertension Social History Social History Smoking packs per day: 1 Smoking cigarettes per day: 20.0 Years smoked: 15 Smoking pack-years: 15.00 Smoking status: Former smoker Tobacco type: cigarettes and e-cigarettes/vaping Smoking end date: 07/12/24 Additional smoking assessment comments: vapes daily / no cigs since 2019 Alcohol intake: current Alcohol use details: rarely, twice a month Substance use: current Substance use type: marijuana Other substance usage details: daily Last use: 9/11/25 Living arrangements: with friend(s) Spiritual care concerns: No (No [place] to visit.) Anes - Eval Final PreProcedure Day of Procedure 04/04/25 09:33 Patient weight: obese Lungs: normal air movement Airway: Mallampati scale class II Neurological: alert and oriented Last oral intake: >/= 8 hours ASA classification: II Emergent: no Anesthetic plan: proceed Anesthesia type and monitoring: general ETT and standard monitoring Results Review: All pre-operative results and documents have been reviewed as part of the pre-operative evaluation. BMI 31, ex smoker, quit 2019, prev vaped, but quit in . Informed Consent: The patient's anesthetic plan and its attendant risks and benefits were discussed with the patient/family/POA. Questions were solicited and answers provided to the satisfaction of the patient/family/POA.
--- NOTE | 2025-04-04 09:36 | WPDHPUPDATE1 ---
History and Physical Update Update Date/Time: 04/04/25 09:36 History and Physical has been reviewed, including an updated exam of the patient. There are NO changes in the patient's condition. Risks, benefits, and alternatives have been discussed and questions answered. Patient agrees to proceed with procedure.
[2025-04-04] MEDS: LACTATED RINGERS 1,000 ML 30 ML IV CONT ×2 (09:40→12:00)
[2025-04-04 09:41] LABS: BEDSIDEPREGUCG Negative (Negative)
[2025-04-04] MEDS: KETOROLAC 15 MG/ML VIAL (*BKC) IV PUSH (09:42)
[2025-04-04] MEDS: ceFAZolin 2 GM in SODIUM CHLORIDE 0.9% IV 50 ML 100 ML IVPB (10:03)
--- NOTE | 2025-04-04 11:32 | S_PTH ---
PATIENT: Matteo Monge LOC: [facility] U#:[id number] AGE/SX: 39/F ROOM: RE04/04/[address]: Dayo Marcelo MD : 1985 BED: DIS: 04/05/2025 SPEC #: [id number] RECD: 04/04/25 13:50 STATUS: BRAD RERaven #: [id number] DAVI: 04/04/25 11:[address]: Dayo Marcelo DEPT: [facility] Surgical RECD BY: Hedy Joseph ENTERED: 04/04/25 13:50 SP TYPE: Surgical OTHR DR: TANKAGE GRINDER OPERATOR PHYSICIAN Tissues: A - Uterus Procedures: Hematoxylin and Eosin Stain Gross and Microscopic Level 5
--- NOTE | 2025-04-04 12:14 | P.OP_ITS ---
Procedure Note - Detailed Date of Procedure 04/04/25 Pre-op Diagnosis menorrhagia with reg cycle Post-op Diagnosis Same Procedure Performed Robot assisted Total hysterectomy with bilateral salpingectomy. Surgeon Dayo Marcelo MD Anesthesia General Indications heavy vaginal bleeding, pelvic pain Findings Normal appearing uterus, fallopian tubes, ovaries. Normal vulva, vagina, cervix. Description of Procedure This patient was taken to the operating room. She was prepped and draped in the dorsal lithotomy position after induction of general anesthesia. The uterine manipulator and Vicky cup were placed. This was done with a speculum and tenaculum. The speculum was placed. The cervix was grasped with a tenaculum. The stay sutures were placed at 3 and 9:00 a.m.. The stay sutures of 0 Vicryl were tied to the appropriately Size scope after it was slipped around the cervix.. The tip of the ANTONETTE manipulator was placed in the intrauterine cavity. The cup was slid into place around the cervix and into the fornices. It was locked into place. The sutures were then wrapped around the handle and tied under tension. A 8 mm skin incision was made in the left upper quadrant the abdomen. a 5 mm Visiport trocar was inserted into abdominal cavity and pneumoperitoneum was achieved. A 8 mm supraumbilical incision was made and a 8 mm trocar was inserted into the intrauterine cavity under direct visualization of the scope. an 8 mm incision was made in the right upper quadrant of the abdomen and an 8 mm robotic trocar was placed the inter uterine cavity under direct visualization the scope. An 11 mm trocar was inserted in the right upper quadrant of the abdomen rectal is a cystoscope after an incision was made there as well. The robot was docked. Electronic Orientation of the robot was performed. Bilateral ureteral lysis was performed. This was done from the pelvic brim down to the uterine artery. This was done with careful dissection using sharp and blunt dissection. The fallopian tubes were removed bilaterally. The mesosalpinx around the fallopian tubes were cauterized transected with LigaSure cautery. This was done in a bilateral fashion from the ovary to the uterine c ornua. The fallopian tube was transected at the uterine cornu and amputated. The tube was taken out the left lower quadrant trocar site. In a stepwise fashion along the lateral aspects of the uterus the round ligament and broad ligaments were cauterized transected down to the level of the uterine arteries. A bladder flap was created in the bladder was moved distally to the end of the cervix and over the Vicky cup. The bilateral uterine arteries were cauterized and transected. Colpotomy was then performed. In a circumferential fashion the vagina was transected using unipolar cautery. The incision was made down on the Vicky cup. The uterus and cervix were taken out through the vagina. A pneumo occluder was placed in the vagina. The vaginal cuff was closed with a 0 V lock suture in a running fashion. The pelvis was irrigated with copious amounts antibiotic irrigation. The ureters were again examined and found to be intact and flowing freely under the uterine arteries into the bladder. The bladder was intact. It was examined directly. Cystoscopy was performed after administration of methylene blue. The cystoscope was inserted. Bladder was distended with fluid. The ureteric meatus was observed bilaterally. Blue fluid was seen to egress bilaterally. The bladder was drained and the cystoscope was withdrawn. The vagina was irrigated with Betadine solution after removal of the Pneumo occluder. the trocars were removed after the robot was undocked. The skin was closed with subacute or Dermabond. The patient was taken to recovery room. She was stable condition. Sponge lap and needle counts were correct x2. Estimated Blood Loss 125 Urine Output 800 Drains Yes Packing No Pathology Yes Complications No immediate complications Condition Stable Disposition Floor
--- NOTE | 2025-04-04 13:02 | PC.NURSE ---
This patient, Matteo Monge, was received from [PACU] per bed on 04/04/25 at 1302. Patient/family oriented to unit policies and routines.
[2025-04-04] MEDS: DEXTROSE 5%/0.45% SOD CHL 1,000 ML 125 ML IV CONT (13:13)
[2025-04-04] MEDS: oxyCODONE HCL (*CRX) 5 MG TAB IR PO ×2 (13:13→14:42)
--- NOTE | 2025-04-04 14:00 | PC.NURSE ---
On 04/04/25, the student, Bozena Casillas, provided care and completed [facility] documentation on this patient. I have reviewed the student's documentation and agree with the findings.
[2025-04-04] MEDS: KETOROLAC 30 MG/ML VIAL (*BKC) IV PUSH ×2 (17:21→23:44)
[2025-04-04] MEDS: SIMETHICONE 80 MG TAB.CHEW PO (17:22)
[2025-04-04] MEDS: DOCUSATE SODIUM 100 MG CAPSULE PO (17:22)
[2025-04-04] MEDS: ONDANSETRON INJ 4 MG/2 ML VIAL IV PUSH (19:26)
[2025-04-04] MEDS: oxyCODONE HCL (*CRX) 5 MG TAB IR 10 MG PO (21:07)
[2025-04-05 00:40] VITALS: BP 113/69; PULSE 84; RESP 16; TEMP 36.8; O2SAT 96
[2025-04-05] MEDS: oxyCODONE HCL (*CRX) 5 MG TAB IR 10 MG PO (04:14)
[2025-04-05 04:15] VITALS: BP 106/60; PULSE 88; RESP 16; TEMP 36.8; O2SAT 96
[2025-04-05] MEDS: KETOROLAC 30 MG/ML VIAL (*BKC) IV PUSH (05:32)
[2025-04-05] MEDS: ACETAMINOPHEN 500 MG TABLET 1000 MG PO ×2 (05:32→12:20)
[2025-04-05 08:05] VITALS: BP 101/61; PULSE 70; RESP 18; TEMP 36.9; O2SAT 97
[2025-04-05] MEDS: DOCUSATE SODIUM 100 MG CAPSULE PO (08:45)
[2025-04-05] MEDS: SIMETHICONE 80 MG TAB.CHEW PO (08:45)
[2025-04-05] MEDS: ONDANSETRON HCL ODT 4 MG TABLET PO (08:46)
[2025-04-05] MEDS: oxyCODONE HCL (*CRX) 5 MG TAB IR PO (10:22)
[2025-04-05] MEDS: IBUPROFEN 600 MG TABLET PO (12:20)
--- NOTE | 2025-04-05 13:07 | PM.GYNPNOP ---
VENTILATION MECHANIC - A/P Postoperative Procedures: Procedures Operation Date: 04/04/25 10:30 Actual Procedure Side Surgeon p Robotic Assisted Hysterectomy with Bilateral Salpingectomy Bilateral Dayo Marcelo MD Postoperative day: 1 Postoperative status: doing well Postoperative plan: see orders Time Spent With Patient Time: Total time spent is greater than 50% in coordination of care (as documented) at patient's floor/unit and/or counseling patient: Time with patient: less than 15 minutes VENTILATION MECHANIC- PN:Subj Post-Op Subjective Date/time seen: 04/05/25 13:07 Subjective: patient reports feeling better, patient has no complaints and pain is well controlled Exam Const: General: healthy appearing, comfortable and no acute distress Resp: Auscultation: clear to auscultation bilaterally, no rales, no rhonchi and no wheezes Cardio: Rate: regular rate Heart sounds: no click, no murmurs and no rubs GI: Inspection: non-distended Auscultation: normal bowel sounds Extrem: General: normal to inspection, no pedal edema and no calf tenderness VENTILATION MECHANIC - PN: Obj Data Vital Signs Vital Signs: Vital Signs - 24 hr 04/04/25 13:08 04/04/25 17:30 04/04/25 19:25 Temperature 98 F 97.2 F L 97.9 F Pulse Rate 82 79 86 Respiratory Rate 16 18 17 Blood Pressure 127/81 124/72 122/82 Pulse Oximetry 96 95 97 Oxygen Delivery 04/04/25 19:50 04/05/25 00:40 04/05/25 00:40 Temperature 98.2 F Pulse Rate 86 84 84 Respiratory Rate 17 16 16 Blood Pressure 113/69 Pulse Oximetry 97 96 96 Oxygen Delivery Room Air Room Air 04/05/25 04:15 04/05/25 04:15 04/05/25 08:05 Temperature 98.2 F 98.5 F Pulse Rate 88 88 70 Respiratory Rate 16 16 18 Blood Pressure 106/60 101/61 Pulse Oximetry 96 96 97 Oxygen Delivery Room Air 04/05/25 08:30 Temperature Pulse Rate Respiratory Rate Blood Pressure Pulse Oximetry Oxygen Delivery Room Air Intake/Output Intake/Output: Intake & Output 04/02/25 04/03/25 04/04/25 04/05/25 23:59 23:59 23:59 23:59 Intake Total 1100 Output Total 1790 Balance -690 Meds/Results Medications: Active Medications Generic Name Dose Route Start Last Admin Trade Name Freq PRN Reason Stop Dose Admin Acetaminophen 1,000 mg 04/04/25 18:00 04/05/25 12:20 Acetaminophen 500 Mg Tablet PO 1,000 mg Q6HR MATTHEW Administration Docusate Sodium 100 mg 04/04/25 17:00 04/05/25 08:45 Docusate Sodium 100 Mg Capsule PO 100 mg BID MATTHEW Administration Dextrose/Sodium Chloride 1,000 mls @ 125 mls/hr 04/04/25 12:53 04/04/25 13:13 Dextrose 5% Sodium Chloride 0.45% IV CONT 125 mls/hr .Q8H MATTHEW Administration Ibuprofen 600 mg 04/05/25 12:00 04/05/25 12:20 Ibuprofen 600 Mg Tablet PO 600 mg Q6HR MATTHEW Administration Naloxone HCl 0.1 mg 04/04/25 12:53 Naloxone Hcl 0.4 Mg/Ml Vial IV PUSH Q2M PRN Respiratory rate less than 10 Ondansetron HCl 4 mg 04/04/25 12:53 04/04/25 19:26 Ondansetron Inj 4 Mg/2 Ml Vial IV PUSH 4 mg Q6H PRN Administration Nausea And Vomiting Ondansetron HCl 4 mg 04/05/25 07:12 04/05/25 08:46 Ondansetron Hcl Odt 4 Mg Tablet PO 4 mg Q6H PRN Administration Nausea And Vomiting Oxycodone HCl 5 mg 04/04/25 12:53 04/05/25 10:22 Oxycodone Hcl (*Crx) 5 Mg Tab Ir PO 5 mg Q4H PRN Administration Pain Rated 4-6 Oxycodone HCl 10 mg 04/04/25 12:53 04/05/25 04:14 Oxycodone Hcl (*Crx) 5 Mg Tab Ir PO 10 mg Q6H PRN Administration Pain Rated 7-10 Simethicone 80 mg 04/04/25 17:00 04/05/25 08:45 Simethicone 80 Mg Tab.Chew PO 80 mg TIDWM MATTHEW Administration
== END 2025-04-05 13:55 | disposition home or self-care (01) ==
LOC: ANHSURGERY 08:45 → ANHOB2 13:01
PROVIDERS: Visit Provider Obstetrics & Gynecology
PROC: (CPT 58571; principal; 2025-04-04 10:30)
DX: N92.0 Excessive and frequent menstruation with regular cycle (principal); G89.18 Other acute postprocedural pain; F32.A Depression, unspecified; M79.7 Fibromyalgia; K21.9 Gastro-esophageal reflux disease without esophagitis; K58.9 Irritable bowel syndrome, unspecified; M19.90 Unspecified osteoarthritis, unspecified site; F17.290 Nicotine dependence, other tobacco product, uncomplicated; F12.90 Cannabis use, unspecified, uncomplicated; E66.9 Obesity, unspecified; Z68.32 Body mass index [BMI] 32.0-32.9, adult; Z98.890 Other specified postprocedural states; Z97.5 Presence of (intrauterine) contraceptive device; Z80.0 Family history of malignant neoplasm of digestive organs
CPT/HCPCS: 58571; S2900; 88307; 99199; J0690; A9270; J1100; J1171; J1885; J2003; J2250; J2405; J2704; J3010; J7030; J7120; Q9968